=== PATIENT | female | born 1940 | race Caucasian/White ===

== ENCOUNTER 2017-08-23 10:42 | Emergency (ER) | payer MEDICARE, OTHER ==
[2017-08-23 10:50] VITALS: BP 145/62
--- NOTE | 2017-08-23 11:32 | UC ---
Abdominal Pain Female HPI - HPI Summary HPI Summary: Low abd discomfort, nausea, and inguinal pain with radiation to the legs starting 2 days ago. Denies vomiting or fever. In June 2017 pt was hospitalized with pancreatitis, no precipitating factors found. After hospitalization pt went to [facility] and had MRIs of abd and pelvis due to hx of vulvar CA in 2009, no pathology found. Had endoscopy with abd US 08/14, showed non-bleeding ulcer and normal pancreas. Was maintaining a very low-fat diet but increased fat after normal US. Is planning to leave town tomorrow and leave the country in 2 days for a 6-week trip to [facility], not sure if she should still go. - History of Current Complaint Chief Complaint: UCGeneralIllness Stated Complaint: ABD PAIN NAUSEA CHILLS Time Seen by Provider: 08/23/17 10:57 Hx Obtained From: Patient ?: No Onset/Duration: Gradual Onset, Lasting Days Timing: Constant Severity Initially: Mild Severity Currently: Moderate Location: Suprapubic Radiates: Yes Radiates to: Back, Inguinal, Other - upper legs Character: Aching, Dull Aggravating Factor(s): Movement Alleviating Factor(s): Nothing Associated Signs and Symptoms: Positive: Back Pain, Constipation - earlier in the week, resolved Fri/Sat, Decreased Appetite, Nausea. Negative: Vaginal Bleeding, Vomiting Allergies/Adverse Reactions: Allergies Allergy/AdvReac Type Severity Reaction Status Date / Time Amlodipine [From [facility]] Allergy Swelling Verified 08/23/17 10:45 Nitroglycerin Allergy Fatigue Verified 08/23/17 10:45 Clindamycin AdvReac Severe C-DIFF Verified 08/23/17 10:45 PMH/Surg Hx/FS Hx/Imm Hx Endocrine History: Thyroid Disease Cardiovascular History: Hypertension Other Cancer History: vulvar CA, had surgery and removal of lymph nodes Other History Of: Negative For: Anticoagulant Therapy - Surgical History Surgical History: None Surgery Procedure, Year, and Place: jose-vulvectomy 2009, tonsillectomy, appendectomy - Family History Known Family History: Positive: None - reviewed & noncontributory, Cardiac Disease - Social History Lives: With Family Alcohol Use: Occasionally Substance Use Type: None Smoking Status (MU): Former Smoker - Immunization History Most Recent Influenza Vaccination: 2014 Most Recent Tetanus Shot: 2009 Most Recent Pneumonia Vaccination: 2014 Review of Systems Constitutional: Negative Skin: Negative Eyes: Negative ENT: Negative Respiratory: Negative Cardiovascular: Negative Gastrointestinal: Abdominal Pain, Nausea Genitourinary: Negative Motor: Negative Neurovascular: Negative Musculoskeletal: Negative Neurological: Negative Psychological: Negative Is Patient Immunocompromised?: No All Other Systems Reviewed And Are Negative: Yes Physical Exam Triage Information Reviewed: Yes Appearance: No Pain Distress, Other: - pale Vital Signs: Initial Vital Signs Temp 98 F 08/23/17 10:46 Pulse 94 08/23/17 10:46 Resp 16 08/23/17 10:46 BP 145/62 08/23/17 10:46 Pulse Ox 100 08/23/17 10:46 Vital Signs Reviewed: Yes Eye Exam: Normal Eyes: Positive: Conjunctiva Clear ENT Exam: Normal ENT: Positive: Normal ENT inspection, Hearing grossly normal, Pharynx normal, TMs normal. Negative: TM bulging, TM dull, TM red Dental Exam: Normal Dental: Negative: Percussion Tenderness @, Gross Decay/Caries @ Neck exam: Normal Neck: Positive: Supple, Nontender, No Lymphadenopathy Respiratory Exam: Normal Respiratory: Positive: Chest non-tender, Lungs clear, Normal breath sounds, No respiratory distress, No accessory muscle use Cardiovascular: Positive: RRR, Murmur:Sys:Grade _?_/ - II, blowing Abdominal Exam: Other - Firm post-surgical scars where inguinal lymph nodes were removed bilat Abdomen Description: Positive: Nontender, Other: - midl discomfort with low palpation, nothing focal. Negative: McBurney's Point Tenderness, Peritoneal Signs Musculoskeletal Exam: Normal Musculoskeletal: Positive: ROM Intact Neurological Exam: Normal Neurological: Positive: Alert Psychological Exam: Normal Skin Exam: Normal Abd Pain Female Course/Dx - Differential Dx/Diagnosis Provider Diagnoses: abdominal pain Discharge - Discharge Plan Condition: Stable Disposition: AGAINST MEDICAL ADVICE Patient Education Materials: Acute Abdominal Pain (ED) Forms: *Gen. Provider Communication Referrals: Chani De La Garza MD [Primary Care Provider] - Additional Instructions: It is unclear what is causing your discomfort, but I am concerned about what could be happening. I strongly recommend you go to the emergency department for further care; I am unable to advise you about whether you should leave the country or not.
== END 2017-08-23 11:38 | disposition home or self-care (01) ==
LOC: UCEAST 10:42
DX: R10.30 Lower abdominal pain, unspecified (principal); R11.0 Nausea; M54.9 Dorsalgia, unspecified; K59.00 Constipation, unspecified; E07.9 Disorder of thyroid, unspecified; I10 Essential (primary) hypertension; Z85.44 Personal history of malignant neoplasm of other female genital organs; Z88.1 Allergy status to other antibiotic agents; Z87.891 Personal history of nicotine dependence
CPT/HCPCS: 99211; G0463

== ENCOUNTER 2018-04-23 01:18 | Observation (INO) | payer MEDICARE, OTHER ==
--- OUTSIDE RECORDS SUMMARY | 2018-04-23 01:27 | XMS REPORT ---
:1940 External Reference #:[id number] Author Organization [facility] Address [address] [place] [address] Phone [phone] Care Team Providers Name Role Phone Chani De La Garza M.D. Primary Care Physician Unavailable Payers Type Date Identification Numbers Payment Provider Subscriber Medicare Primary Policy Number: [id number] Medicare - NGS Paty Madrigal PayID: [id number] [address] [place] [address] Commercial Policy Number: [id number] [employer] Paty Madrigal PayID: [id number] [address] [place] [address] Problems Date Description Provider Status Onset: Arthritis Active Onset: Essential hypertension Active Onset: Herpes simplex type 2 infection Active Onset: Migraine Active Onset: Asthma Active Onset: Hypothyroidism Active Onset: 05/14/2015 Primary open angle glaucoma Vladimir Espino M.D. Active Onset: 05/14/2015 Nuclear senile cataract Vladimir Espino M.D. Active Onset: 05/14/2015 Severe / Advanced / End Stage Vladimir Espino M.D. Active Glaucoma Onset: 08/14/2015 Combined form of senile cataract Vladimir Espino M.D. Active Onset: 02/15/2016 Chalazion Nickolas Peterson OAnjelica Onset: 02/15/2016 Angular blepharoconjunctivitis Nickolas Peterson O.D. Onset: 12/03/2016 Epidermoid cyst Nickolas Peterson OAnjelica Onset: 12/17/2016 Bilateral primary open angle glaucoma Braden Sarah M.D. Active Onset: 11/20/2017 Squamous blepharitis Vladimir Espino M.D. Active Onset: 03/26/2018 Contact dermatitis Nickolas Peterson O.D. 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 ETOH Use Occasionally consumes alcohol Smoking Patient has never smoked Recreational Drug Use Denies Drug Use Daily Caffeine Consumes on average 1 cup of regular coffee per day Allergies, Adverse Reactions, Alerts Date Description Reaction Status Severity Comments 05/10/2015 Ragweed active 05/10/2015 Dust Mites active 05/10/2015 Mold active 04/09/2018 Benzalkonium Chloride active Medications Medication Date Status Form Strength Qnty SIG Indications Ordering Provider Travatan Z 04/07/ Active Solution 0.004% 2.500m 1 drop Jillian Philippe 2018 l both Jesus, eyes O.DAlexa every night Cold Compresses 04/07/ Active Jillian Lee O.D. Baby Shampoo 04/06/ Active Shampoo on lids Jillian Lee O.D. [place]-3 08/06/ Active Capsules 1000mg 1 by Vladimir Philippe 2014 mouth [place], every M.D. day Alphagan P 05/07/ Active Solution 0.1% 20unit instill Vladimir Malcolm s 1 drop [place], to both M.D. eyes twice a day Alprazolam / Active Tablets 0.25mg Unknown 0000 Atenolol / Active Tablets 25mg Unknown 0000 Cyanocobalamin / Active Solution 1000mcg/ML Unknown 0000 Ferrous Sulfate / Active Tablets ER 140(45Fe) Unknown ER 0000 mg Glucosamine & / Active Capsules 500-400-60 Unknown Fish Oil 0000 -40mg Levothyroxine / Active Tablets 88mcg Unknown Sodium 0000 Potassium / Active Solution 10Meq/100M Unknown Chloride 0000 L Rizatriptan / Active Tablets 10mg Unknown Benzoate 0000 Valacyclovir HCL / Active Tablets 1gm Unknown 0000 Zolpidem / Active Tablets 10mg Unknown Tartrate 0000 Lisinopril / Active Tablets 5mg Unknown 0000 Tobradex 03/26/ Hx Ointment 0.3-0.1% 3.500g apply to L23.9 Jillian Philippe 2018 - m all lids [facility], 04/06/ 2xday O.D. 2018 right eye and at bedtime left eye for 2 weeks Tobradex 12/03/ Hx Ointment 0.3-0.1% 3.500g apply to L72.3 Jillian Philippe 2017 - m RLL at [facility], 03/15/ bedtime O.D. 2017 for 2 weeks Erythromycin 02/14/ Hx Ointment 5mg/GM 1Tube apply H00.12 Jillian Philippe 2016 - thin [facility], 08/24/ strip to O.D. 2016 all four eyelid margins x every night for 3 weeks Tea Tree Oil 02/14/ Hx Oil scrubs Vladimir Carter 2015 - lids [place], 04/06/ with it M.D. 2018 than rinses Latanoprost 01/17/ Hx Solution 0.005% 7.500m one drop Vladimir Philippe 2015 - l in both [place], 04/07/ eyes M.D. 2018 every night before bedtime. Xalatan 05/09/ Hx Solution 0.005% 2.500m 1 drop Vladimir Philippe 2014 - l both [place], 01/17/ eyes M.D. 2016 every night Azopt 05/09/ Hx Suspension 1% 15unit 1 drop Vladimir Philippe 2014 - s both [place], 04/05/ eyes M.D. 2018 twice a day Medications Administered in Office Medication Date Status Form Strength Qnty SIG Indications Ordering Provider Crizal Administered Injection Rachna 3 Katherine Mcdowell Results Description No Information Procedures Date CPT Code Description Status 03/26/2018 76929 Est Patient Intermediate Exam Completed 11/20/2017 76230 Scanning Computerized Ophthalmic Diagnostic Imag Completed Posterior Seg On 11/20/2017 58285 Visual Field Exam Extended Completed 11/20/2017 43220 Est Patient Comprehensive Exam Completed 03/16/2017 34707 Visual Field Exam Extended Completed 03/16/2017 89318 Est Patient Intermediate Exam Completed 12/03/2016 66791 Est Patient Intermediate Exam Completed 08/25/2016 54801 Scanning Computerized Ophthalmic Diagnostic Imag Completed Posterior Seg On 08/25/2016 11745 Est Patient Comprehensive Exam Completed 03/04/2016 80879 Est Patient Intermediate Exam Completed 03/04/2016 50147 Visual Field Exam Extended Completed 02/15/2016 50710 Est Patient Comprehensive Exam Completed 08/14/2015 25326 Est Patient Intermediate Exam Completed 08/02/2015 45012 Determination Of Refractive State Completed 05/14/2015 11657 Scanning Computerized Ophthalmic Diagnostic Imag Completed Posterior Seg On 05/14/2015 16934 Est Patient Comprehensive Exam Completed 05/10/2015 64947 Visual Field Exam Extended Completed 01/03/2014 59488 Est Patient Comprehensive Exam Completed 01/03/2014 00286 Determination Of Refractive State Completed 01/03/2014 21570 Fundus Photography With Interpretation And Report Completed 07/01/2013 80390 Scanning Computerized Ophthalmic Diagnostic Imag Completed Posterior Seg On 07/01/2013 38326 Visual Field Exam Extended Completed 07/01/2013 45292 Est Patient Intermediate Exam Completed 12/23/2012 46359 Est Patient Intermediate Exam Completed 08/23/2012 91704 Scanning Computerized Ophthalmic Diagnostic Imag Completed Posterior Seg On 08/23/2012 43562 Est Patient Intermediate Exam Completed 08/11/2012 26372 Visual Field Exam Extended Completed 04/01/2012 30721 Est Patient Intermediate Exam Completed 10/31/2011 03438 Visual Field Exam Extended Completed 10/31/2011 99452 Est Patient Intermediate Exam Completed 07/18/2011 77671 Trabeculoplasty By Laser Surgery Completed 06/26/2011 28262 Visual Field Exam Extended Completed 06/26/2011 95726 Est Patient Intermediate Exam Completed 04/25/2011 01093 Scanning Computerized Ophthalmic Diagnostic Imag Completed Posterior Seg On 04/25/2011 74690 Est Patient Intermediate Exam Completed 12/26/2010 52969 Est Patient Intermediate Exam Completed 12/13/2010 21743 Visual Field Exam Extended Completed 05/01/2010 46253 Est Patient Intermediate Exam Completed 04/09/2010 20816 Scanning Laser W/Interp And Report Completed 04/09/2010 54290 Est Patient Comprehensive Exam Completed 12/14/2009 59751 Visual Field Exam Extended Completed 11/02/2009 08632 Est Patient Intermediate Exam Completed 08/14/2009 68052 Visual Field Exam Extended Completed 08/14/2009 66356 Est Patient Intermediate Exam Completed 04/05/2009 86609 Est Patient Intermediate Exam Completed 04/05/2009 74930 Scanning Laser W/Interp And Report Completed 10/17/2008 12704 Fundus Photography With Interpretation And Report Completed 10/17/2008 16484 Visual Field Exam Extended Completed 10/17/2008 81616 Est Patient Intermediate Exam Completed 05/23/2008 12684 Trabeculoplasty By Laser Surgery Completed 04/20/2008 10813 Fistulization Sclera For Glaucoma, Trabeculectomy AB Completed Externo 04/03/2008 29008 Visual Field Exam Extended Completed 03/10/2008 02918 Visual Field Exam Extended Completed 11/04/2007 13625 Est Patient Intermediate Exam Completed 11/04/2007 57600 Determination Of Refractive State Completed 08/24/2007 85997 Est Patient Intermediate Exam Completed 08/02/2007 50504 Est Patient Intermediate Exam Completed 05/14/2007 73031 Scanning Laser W/Interp And Report Completed 05/14/2007 01132 Visual Field Exam Extended Completed 05/14/2007 94095 Est Patient Intermediate Exam Completed 01/13/2007 32181 Trabeculoplasty By Laser Surgery Completed 09/21/2006 80048 Visual Field Exam Extended Completed 04/08/2006 58140 Fundus Photography With Interpretation And Report Completed 04/14/2005 52094 Visual Field Exam Extended Completed 03/14/2005 71054 Rescheduled Appointment Completed 12/26/2004 28846 Gonioscopy Completed 11/12/2004 65572 Fundus Photography With Interpretation And Report Completed 11/12/2004 01413 Est Patient Intermediate Exam Completed 11/12/2004 24411 Pachymetry Completed 11/06/2004 47952 Scanning Laser W/Interp And Report Completed 11/06/2004 09010 Visual Field Exam Extended Completed 10/25/2004 03709 Est Patient Intermediate Exam Completed 01/16/2003 113 Crizal Completed Encounters Type Date Location Provider CPT E/M Dx Office Visit 04/02/2018 2:20p Vladimir Espino MD, Jillian Lee, 57853 L23.9 pc O.D. H40.1133 Office Visit 12/17/2016 10:45a Vladimir Espino MD, Braden Sarah M.D. 57999 L72.3 pc H40.1133 Office Visit 11/29/2013 12:00p Vladimir Espino MD, Su Botello O.D. 85115 373.00 pc 373.12 Office Visit 09/16/2013 2:20p Vladimir Espino MD, Jillian Lee, 97883 373.2 pc O.D. Office Visit 11/11/2012 11:00a Vladimir Espino MD, Jillian Lee, 73593 692.9 pc O.D. Office Visit 10/27/2012 9:10a Vladimir Espino MD, Jillian Lee, 68492 373.2 pc O.D. Office Visit 02/18/2012 11:00a Vladimir Espino MD, Ivan Burton M.D. 83594 V58.32 pc Office Visit 09/12/2011 1:30p Vladimir Espino MD, Ivan Burton M.D. 44655 372.40 pc Office Visit 08/29/2011 11:00a Vladimir Espino MD, Vladimir Espino M.D. 24498 365.11 pc 365.73 Office Visit 05/15/2011 10:45a Vladimir Espino MD, Oswaldo Andrea M.D. 42962 365.11 pc Office Visit 05/02/2010 11:00a Vladimir Espino MD, Vladimir Espino M.D. 35701 365.11 pc Office Visit 12/14/2009 11:45a Vladimir Espino MD, Vladimir Espino M.D. 03115 365.11 pc Office Visit 08/15/2008 3:45p Vladimir Espino MD, Vladimir Espino M.D. 53703 373.00 pc Office Visit 06/07/2008 6:00p Vladimir Espino MD, Casandra Rosenberg O.D. 02493 372.05 pc Office Visit 04/05/2008 8:15a Vladimir Espino MD, Vladimir Espino M.D. 42120 365.11 pc Office Visit 04/04/2008 11:15a Vladimir Espino MD, Vladimir Espino M.D. 04210 365.11 pc Office Visit 03/10/2008 9:45a Vladimir Espino MD, Vladimir Espino M.D. 04545 365.11 pc Office Visit 02/10/2007 8:15a Vladimir Espino MD, Vladimir Espino M.D. 39186 365.11 pc Office Visit 12/23/2006 8:45a Vladimir Espino MD, Oswaldo Andrea M.D. 67642 365.11 pc Office Visit 04/16/2006 10:15a Vladimir Espino MD, Oswaldo Andrea M.D. 70316 365.11 pc Office Visit 04/08/2006 10:15a Vladimir Espino MD, Oswaldo Andrea M.D. 47397 365.11 pc Office Visit 12/17/2005 3:45p Vladimir Espino MD, Oswaldo Andrea M.D. 92618 365.11 pc Office Visit 09/17/2005 3:15p Vladimir Espino MD, Oswaldo Andrea M.D. 70873 365.11 pc Office Visit 07/22/2005 3:45p Vladimir Espino MD, Oswaldo Andrea M.D. 94044 365.11 pc Office Visit 07/08/2005 3:45p Vladimir Espino MD, Oswaldo Andrea M.D. 91159 365.11 pc Office Visit 05/27/2005 3:15p Vladimir Espino MD, Oswaldo Andrea M.D. 02822 365.11 pc Office Visit 05/14/2005 8:15a Vladimir Espino MD, Oswaldo Andrea M.D. 07549 365.11 pc Office Visit 03/18/2005 11:15a Vladimir Espino MD, Oswaldo Andrea M.D. 88974 365.11 pc Office Visit 12/26/2004 9:45a Vladimir Espino MD, Vladimir Espino M.D. 85465 365.01 Plan of Care Future Appointment(s):05/04/2018 1:00 pm - Vladimir Espino M.D. at Vladimir Espino MD, 04/09/2018 - Jillian Lee O.D.L23.9 Allergic contact dermatitis, unspecified causeFollow up:3 wks with RA as [id number] Primary open-angle glaucoma, bilateral, severe stageComments:Smoking can increase the risk of developing or worsening any eye related disease, as well as affect your overall health. If you are a smoker, we strongly recommend that you quit.If you are not a smoker, we strongly recommend that you do not start. Your glaucoma is stable at this time.Your eye pressure is within an acceptable range , and your testing does not show any Glaucoma related changes at thistime. Please continue your treatment.
--- OUTSIDE RECORDS SUMMARY | 2018-04-23 01:28 | XMS REPORT ---
:1940 External Reference #:[id number] Author Organization [facility] Address [address] [place] [address] Phone [phone] Care Team Providers Name Role Phone Chani De La Garza M.D. Primary Care Physician Unavailable Payers Type Date Identification Numbers Payment Provider Subscriber Medicare Primary Policy Number: [id number] Medicare - NGS Paty Madrigal PayID: [id number] [address] [place] [address] Commercial Policy Number: [id number] [employer] Paty Madrigal PayID: [id number] [address] [place] [address] Problems Date Description Provider Status Onset: Arthritis [...] Nickolas Peterson OAnjelica Onset: 02/15/2016 Angular blepharoconjunctivitis Jillian Lee Active O.DAlexa Onset: 12/03/2016 Epidermoid cyst Jillian Lee Active O.Darryn Onset: 12/17/2016 Bilateral primary open angle glaucoma Braden Sarah M.D. Active Onset: 11/20/2017 Squamous blepharitis Vladimir Espino M.D. 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 right eye and at bedtime left eye for 2 weeks Tea Tree Oil 02/14/ Active Oil scrubs Vladimir Philippe Shamliang 2016 lids [place], with it M.D. than rinses Latanoprost 01/17/ Active Solution 0.005% 7.500m one drop Vladimir Flannery l in both [place], eyes M.D. every night before bedtime. [place]-3 08/06/ Active Capsules 1000mg 1 by Vladimir Philippe 2015 mouth [place], every M.D. day Azopt 05/09/ Active Suspension 1% 15unit 1 drop Vladimir Malcolm s both [place], eyes M.D. twice a day Alphagan P 05/07/ Active Solution 0.1% [...] / Active Tablets 5mg Unknown 0000 Tobradex 12/03/ Hx Ointment 0.3-0.1% 3.500g apply to L72.3 Jillian Philippe 2017 - m RLL at [facility], 03/15/ bedtime O.D. 2016 for 2 weeks Erythromycin 02/14/ Hx Ointment 5mg/GM 1Tube apply H00.12 Jillian Philippe 2016 - thin [facility], 08/24/ strip to O.D. 2016 all four eyelid margins x every night for 3 weeks Xalatan 05/09/ Hx Solution 0.005% 2.500m 1 drop Vladimir Philippe 2015 - l both [place], 01/17/ eyes M.D. 2016 every night Medications Administered in Office Medication Date Status Form Strength Qnty SIG Indications Ordering Provider Crizal Administered Injection Rachna 3 Brown,Abo Results Description No Information Procedures Date CPT Code Description Status 11/20/2017 89629 Scanning Computerized Ophthalmic Diagnostic Imag Completed Posterior Seg On 11/20/2017 05067 Visual Field Exam Extended Completed 11/20/2017 53200 Est Patient Comprehensive Exam Completed 03/16/2017 51847 Visual Field Exam Extended Completed 03/16/2017 52100 Est Patient Intermediate Exam Completed 12/03/2016 99617 Est Patient Intermediate Exam Completed 08/25/2016 11023 Scanning Computerized Ophthalmic Diagnostic Imag Completed Posterior Seg On 08/25/2016 69622 Est Patient Comprehensive Exam Completed 03/04/2016 68712 Est Patient Intermediate Exam Completed 03/04/2016 58374 Visual Field Exam Extended Completed 02/15/2016 04317 Est Patient Comprehensive Exam Completed 08/14/2015 36934 Est Patient Intermediate Exam Completed 08/02/2015 67283 Determination Of Refractive State Completed 05/14/2015 62205 Scanning Computerized Ophthalmic Diagnostic Imag Completed Posterior Seg On 05/14/2015 05107 Est Patient Comprehensive Exam Completed 05/10/2015 91367 Visual Field Exam Extended Completed 01/03/2014 62354 Est Patient Comprehensive Exam Completed 01/03/2014 12964 Determination Of Refractive State Completed 01/03/2014 96455 Fundus Photography With Interpretation And Report Completed 07/01/2013 14913 Scanning Computerized Ophthalmic Diagnostic Imag Completed Posterior Seg On 07/01/2013 70002 Visual Field Exam Extended Completed 07/01/2013 72327 Est Patient Intermediate Exam Completed 12/23/2012 59564 Est Patient Intermediate Exam Completed 08/23/2012 65416 Scanning Computerized Ophthalmic Diagnostic Imag Completed Posterior Seg On 08/23/2012 09292 Est Patient Intermediate Exam Completed 08/11/2012 18587 Visual Field Exam Extended Completed 04/01/2012 21189 Est Patient Intermediate Exam Completed 10/31/2011 31025 Visual Field Exam Extended Completed 10/31/2011 30209 Est Patient Intermediate Exam Completed 07/18/2011 32257 Trabeculoplasty By Laser Surgery Completed 06/26/2011 75582 Visual Field Exam Extended Completed 06/26/2011 90943 Est Patient Intermediate Exam Completed 04/25/2011 23057 Scanning Computerized Ophthalmic Diagnostic Imag Completed Posterior Seg On 04/25/2011 82157 Est Patient Intermediate Exam Completed 12/26/2010 27037 Est Patient Intermediate Exam Completed 12/13/2010 35002 Visual Field Exam Extended Completed 05/01/2010 19533 Est Patient Intermediate Exam Completed 04/09/2010 36092 Scanning Laser W/Interp And Report Completed 04/09/2010 82079 Est Patient Comprehensive Exam Completed 12/14/2009 66600 Visual Field Exam Extended Completed 11/02/2009 11480 Est Patient Intermediate Exam Completed 08/14/2009 79345 Visual Field Exam Extended Completed 08/14/2009 53245 Est Patient Intermediate Exam Completed 04/05/2009 67151 Scanning Laser W/Interp And Report Completed 04/05/2009 56142 Est Patient Intermediate Exam Completed 10/17/2008 21740 Est Patient Intermediate Exam Completed 10/17/2008 35694 Visual Field Exam Extended Completed 10/17/2008 49092 Fundus Photography With Interpretation And Report Completed 05/23/2008 98465 Trabeculoplasty By Laser Surgery Completed 04/20/2008 36705 Fistulization Sclera For Glaucoma, Trabeculectomy AB Completed Externo 04/03/2008 08611 Visual Field Exam Extended Completed 03/10/2008 70050 Visual Field Exam Extended Completed 11/04/2007 76840 Determination Of Refractive State Completed 11/04/2007 90880 Est Patient Intermediate Exam Completed 08/24/2007 61370 Est Patient Intermediate Exam Completed 08/02/2007 96411 Est Patient Intermediate Exam Completed 05/14/2007 97779 Scanning Laser W/Interp And Report Completed 05/14/2007 46596 Visual Field Exam Extended Completed 05/14/2007 75349 Est Patient Intermediate Exam Completed 01/13/2007 29127 Trabeculoplasty By Laser Surgery Completed 09/21/2006 69963 Visual Field Exam Extended Completed 04/08/2006 32855 Fundus Photography With Interpretation And Report Completed 04/14/2005 45848 Visual Field Exam Extended Completed 03/14/2005 70302 Rescheduled Appointment Completed 12/26/2004 16992 Gonioscopy Completed 11/12/2004 40903 Fundus Photography With Interpretation And Report Completed 11/12/2004 24663 Est Patient Intermediate Exam Completed 11/12/2004 30843 Pachymetry Completed 11/06/2004 91034 Scanning Laser W/Interp And Report Completed 11/06/2004 40563 Visual Field Exam Extended Completed 10/25/2004 53961 Est Patient Intermediate Exam Completed 01/16/2003 113 Crizal Completed Encounters Type Date Location Provider CPT E/M Dx Office Visit 12/17/2016 10:45a Vladimir Espino MD, Braden Sarah, 46170 L72.3 pc M.D. H40.1133 Office Visit 11/29/2013 12:00p Vladimir Espino MD, Su Botello O.D. 95801 373.00 pc 373.12 Office Visit 09/16/2013 2:20p Vladimir Espino MD, Jillian Lee, 62627 373.2 pc O.D. Office Visit 11/11/2012 11:00a Vladimir Espino MD, Jillian Lee, 96479 692.9 pc O.D. Office Visit 10/27/2012 9:10a Vladimir Espino MD, Jillian Lee, 19852 373.2 pc O.D. Office Visit 02/18/2012 11:00a Vladimir Espino MD, Ivan Burton M.D. 18089 V58.32 pc Office Visit 09/12/2011 1:30p Vladimir Espino MD, Ivan Burton M.D. 12092 372.40 pc Office Visit 08/29/2011 11:00a Vladimir Espino MD, Vladimir Espino M.D. 63684 365.11 pc 365.73 Office Visit 05/15/2011 10:45a Vladimir Espino MD, Oswaldo Andrea M.D. 87514 365.11 pc Office Visit 05/02/2010 11:00a Vladimir Espino MD, Vladimir Espino M.D. 81386 365.11 pc Office Visit 12/14/2009 11:45a Vladimir Espino MD, Vladimir Espino M.D. 58162 365.11 pc Office Visit 08/15/2008 3:45p Vladimir Espino MD, Vladimir Espino M.D. 45382 373.00 pc Office Visit 06/07/2008 6:00p Vladimir Espino MD, Casandra Rosenberg O.D. 61963 372.05 pc Office Visit 04/05/2008 8:15a Vladimir Espino MD, Vladimir Espino M.D. 51183 365.11 pc Office Visit 04/04/2008 11:15a Vladimir Espino MD, Robert J. Arleo, M.D. 17790 365.11 pc Office Visit 03/10/2008 9:45a Vladimir Espino MD, Robert J. Arleo, M.D. 69108 365.11 pc Office Visit 02/10/2007 8:15a Vladimir Espino MD, Robert J. Arleo, M.D. 12420 365.11 pc Office Visit 12/23/2006 8:45a Vladimir Espino MD, Oswaldo Andrea M.D. 55632 365.11 pc Office Visit 04/16/2006 10:15a Vladimir Espino MD, Oswaldo Andrea M.D. 54504 365.11 pc Office Visit 04/08/2006 10:15a Vladimir Espino MD, Oswaldo Andrea M.D. 69706 365.11 pc Office Visit 12/17/2005 3:45p Vladimir Espino MD, Oswaldo Andrea M.D. 46386 365.11 pc Office Visit 09/17/2005 3:15p Vladimir Espino MD, Oswaldo Andrea M.D. 92673 365.11 pc Office Visit 07/22/2005 3:45p Vladimir Espino MD, Oswaldo Andrea M.D. 58425 365.11 pc Office Visit 07/08/2005 3:45p Vladimir Espino MD, Oswaldo Andrea M.D. 99395 365.11 pc Office Visit 05/27/2005 3:15p Vladimir Espino MD, Oswaldo Andrea M.D. 17248 365.11 pc Office Visit 05/14/2005 8:15a Vladimir Espino MD, Oswaldo Andrea M.D. 72499 365.11 pc Office Visit 03/18/2005 11:15a Vladimir Espino MD, Oswaldo Andrea M.D. 64381 365.11 pc Office Visit 12/26/2004 9:45a Vladimir Espino MD, Vladimir Espino M.D. 46572 365.01 Plan of Care Future Appointment(s):05/31/2018 12:30 pm - Vladimir Espino M.D. at [facility]ino [facility], 03/26/2018 - Jillian Lee O.D.H10.523 Angular blepharoconjunctivitis, [id number] Allergic contact dermatitis, unspecified causeNew Medication:Tobradex 0.3-0.1 %Comments:stop all product use use ointment 2xday all lids right eye and at bedtime only left lidsFollow up:1 Week Follow Up
--- OUTSIDE RECORDS SUMMARY | 2018-04-23 01:28 | XMS REPORT ---
:1940 External Reference #:[id number] Author Organization [facility] Address [address] [place] [address] Phone [phone] Care Team Providers Name Role Phone Chani De La Garza M.D. 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 every night before bedtime. [place]-3 08/06/ Active Capsules 1000mg 1 by Vladimir [...] Jillian Philippe 2017 - m RLL at [facility], 03/15/ bedtime O.D. 2016 for 2 weeks Erythromycin 02/14/ Hx Ointment 5mg/GM 1Tube apply H00.12 Jillian Philippe 2016 - thin [facility], 08/24/ strip to O.D. 2016 all four eyelid margins x every night for 3 weeks Xalatan 05/09/ Hx Solution 0.005% 2.500m 1 drop Vladimir Philippe 2015 - l both [place], 01/17/ eyes M.D. 2016 every night Medications Administered in Office Medication Date Status Form Strength Qnty SIG Indications Ordering Provider Crizal Administered Injection Rachna 3 Brown,Katherine Results Description No Information Procedures Date CPT Code Description Status 03/26/2018 15761 Est Patient Intermediate Exam Completed 11/20/2017 74759 Scanning Computerized Ophthalmic Diagnostic Imag Completed Posterior Seg On 11/20/2017 19469 Visual Field Exam Extended Completed 11/20/2017 90997 Est Patient Comprehensive Exam Completed 03/16/2017 83339 Visual Field Exam Extended Completed 03/16/2017 21771 Est Patient Intermediate Exam Completed 12/03/2016 41242 Est Patient Intermediate Exam Completed 08/25/2016 92128 Scanning Computerized Ophthalmic Diagnostic Imag Completed Posterior Seg On 08/25/2016 25025 Est Patient Comprehensive Exam Completed 03/04/2016 47617 Est Patient Intermediate Exam Completed 03/04/2016 80205 Visual Field Exam Extended Completed 02/15/2016 67598 Est Patient Comprehensive Exam Completed 08/14/2015 65111 Est Patient Intermediate Exam Completed 08/02/2015 19538 Determination Of Refractive State Completed 05/14/2015 89207 Scanning Computerized Ophthalmic Diagnostic Imag Completed Posterior Seg On 05/14/2015 70870 Est Patient Comprehensive Exam Completed 05/10/2015 72813 Visual Field Exam Extended Completed 01/03/2014 71141 Est Patient Comprehensive Exam Completed 01/03/2014 13922 Determination Of Refractive State Completed 01/03/2014 47602 Fundus Photography With Interpretation And Report Completed 07/01/2013 62511 Scanning Computerized Ophthalmic Diagnostic Imag Completed Posterior Seg On 07/01/2013 54342 Visual Field Exam Extended Completed 07/01/2013 86255 Est Patient Intermediate Exam Completed 12/23/2012 52032 Est Patient Intermediate Exam Completed 08/23/2012 63404 Scanning Computerized Ophthalmic Diagnostic Imag Completed Posterior Seg On 08/23/2012 34771 Est Patient Intermediate Exam Completed 08/11/2012 62862 Visual Field Exam Extended Completed 04/01/2012 51938 Est Patient Intermediate Exam Completed 10/31/2011 74883 Visual Field Exam Extended Completed 10/31/2011 37996 Est Patient Intermediate Exam Completed 07/18/2011 19248 Trabeculoplasty By Laser Surgery Completed 06/26/2011 62185 Visual Field Exam Extended Completed 06/26/2011 04980 Est Patient Intermediate Exam Completed 04/25/2011 44936 Scanning Computerized Ophthalmic Diagnostic Imag Completed Posterior Seg On 04/25/2011 49387 Est Patient Intermediate Exam Completed 12/26/2010 52422 Est Patient Intermediate Exam Completed 12/13/2010 71253 Visual Field Exam Extended Completed 05/01/2010 90397 Est Patient Intermediate Exam Completed 04/09/2010 50944 Scanning Laser W/Interp And Report Completed 04/09/2010 90908 Est Patient Comprehensive Exam Completed 12/14/2009 47602 Visual Field Exam Extended Completed 11/02/2009 06195 Est Patient Intermediate Exam Completed 08/14/2009 38312 Visual Field Exam Extended Completed 08/14/2009 20700 Est Patient Intermediate Exam Completed 04/05/2009 87128 Est Patient Intermediate Exam Completed 04/05/2009 51942 Scanning Laser W/Interp And Report Completed 10/17/2008 98424 Fundus Photography With Interpretation And Report Completed 10/17/2008 25887 Visual Field Exam Extended Completed 10/17/2008 72180 Est Patient Intermediate Exam Completed 05/23/2008 05084 Trabeculoplasty By Laser Surgery Completed 04/20/2008 48448 Fistulization Sclera For Glaucoma, Trabeculectomy AB Completed Externo 04/03/2008 50656 Visual Field Exam Extended Completed 03/10/2008 72052 Visual Field Exam Extended Completed 11/04/2007 97469 Est Patient Intermediate Exam Completed 11/04/2007 31680 Determination Of Refractive State Completed 08/24/2007 42620 Est Patient Intermediate Exam Completed 08/02/2007 34476 Est Patient Intermediate Exam Completed 05/14/2007 58456 Scanning Laser W/Interp And Report Completed 05/14/2007 29320 Visual Field Exam Extended Completed 05/14/2007 48166 Est Patient Intermediate Exam Completed 01/13/2007 91302 Trabeculoplasty By Laser Surgery Completed 09/21/2006 34476 Visual Field Exam Extended Completed 04/08/2006 16995 Fundus Photography With Interpretation And Report Completed 04/14/2005 53131 Visual Field Exam Extended Completed 03/14/2005 71914 Rescheduled Appointment Completed 12/26/2004 81729 Gonioscopy Completed 11/12/2004 60715 Fundus Photography With Interpretation And Report Completed 11/12/2004 69141 Est Patient Intermediate Exam Completed 11/12/2004 24362 Pachymetry Completed 11/06/2004 71585 Scanning Laser W/Interp And Report Completed 11/06/2004 17733 Visual Field Exam Extended Completed 10/25/2004 86986 Est Patient Intermediate Exam Completed 01/16/2003 113 Crizal Completed Encounters Type Date Location Provider CPT E/M Dx Office Visit 12/17/2016 10:45a Vladimir Espino MD, Braden Sarah, 54768 L72.3 pc M.DAlexa H40.1133 Office Visit 11/29/2013 12:00p Vladimir Espino MD, Su Botello O.D. 87488 373.00 pc 373.12 Office Visit 09/16/2013 2:20p Vladimir Espino MD, Jillian Lee, 84400 373.2 pc O.D. Office Visit 11/11/2012 11:00a Vladimir Espino MD, Jillian Lee, 70490 692.9 pc O.D. Office Visit 10/27/2012 9:10a Vladimir Espino MD, Jillian Denae Lee, 15820 373.2 pc O.D. Office Visit 02/18/2012 11:00a Vladimir Espino MD, Ivan Burton M.D. 80568 V58.32 pc Office Visit 09/12/2011 1:30p Vladimir Espino MD, Ivan Burton M.D. 09015 372.40 pc Office Visit 08/29/2011 11:00a Vladimir Espino MD, Vladimir Espino M.D. 28562 365.11 pc 365.73 Office Visit 05/15/2011 10:45a Vladimir Espino MD, Oswaldo Andrea M.D. 45299 365.11 pc Office Visit 05/02/2010 11:00a Vladimir Espino MD, Vladimir Espino M.D. 24550 365.11 pc Office Visit 12/14/2009 11:45a Vladimir Espino MD, Vladimir Espino M.D. 63233 365.11 pc Office Visit 08/15/2008 3:45p Vladimir Espino MD, Vladimir Espino M.D. 37901 373.00 pc Office Visit 06/07/2008 6:00p Vladimir Espino MD, Casandra Rosenberg O.D. 48102 372.05 pc Office Visit 04/05/2008 8:15a Vladimir Espino MD, Vladimir Espino M.D. 42833 365.11 pc Office Visit 04/04/2008 11:15a Vladimir Espino MD, Robert J. Arleo, M.D. 98988 365.11 pc Office Visit 03/10/2008 9:45a Vladimir Espino MD, Vladimir Espino M.D. 19483 365.11 pc Office Visit 02/10/2007 8:15a Vladimir Espino MD, Robert J. Arleo, M.D. 14858 365.11 pc Office Visit 12/23/2006 8:45a Vladimir Espino MD, Oswaldo Andrea M.D. 34932 365.11 pc Office Visit 04/16/2006 10:15a Vladimir Espino MD, Oswaldo Andrea M.D. 85782 365.11 pc Office Visit 04/08/2006 10:15a Vladimir Espino MD, Oswaldo Andrea M.D. 75945 365.11 pc Office Visit 12/17/2005 3:45p Vladimir Espino MD, Oswaldo Andrea M.D. 11056 365.11 pc Office Visit 09/17/2005 3:15p Vladimir Espino MD, Oswaldo Andrea M.D. 57892 365.11 pc Office Visit 07/22/2005 3:45p Vladimir Espino MD, Oswaldo Andrea M.D. 76665 365.11 pc Office Visit 07/08/2005 3:45p Vladimir Espino MD, Oswlado Andrea M.D. 43116 365.11 pc Office Visit 05/27/2005 3:15p Vladimir Espino MD, Oswaldo Andrea M.D. 70958 365.11 pc Office Visit 05/14/2005 8:15a Vladimir Espino MD, Oswaldo Andrea M.D. 20228 365.11 pc Office Visit 03/18/2005 11:15a Vladimir Espino MD, Oswaldo Andrea M.D. 98834 365.11 pc Office Visit 12/26/2004 9:45a Vladimir Espino MD, Vladimir Espino M.D. 99707 365.01 Plan of Care Future Appointment(s):05/31/2018 12:30 pm - Vladimir Espino M.D. at [facility], 04/02/2018 - Jillian Lee O.D.L23.9 Allergic contact dermatitis, unspecified causeFollow up:1 weekH40.1133 Primary open-angle glaucoma, bilateral, severe stageComments:STOP Azopt and LatanoprostStop Tobradex dropsSTART Travatan z both eyes at bedtimeContinue Alphagan P 2 x day both eyesUse Jorge's Baby shampoo for washingUse a cold compress for comfort
[2018-04-23] MEDS ORDERED: NS 0.9% 1000 ML* 1,000 ML IV ONE (01:43)
--- NOTE | 2018-04-23 01:52 | ED ---
Complex/Multi-Sys Presentation - HPI Summary HPI Summary: This is scribe Marty Ortega documenting for attending Thomas Menon MD. This patient is a 78 year old F presenting to [facility] with a chief complaint of weakness since 14:30 on 04/22/2018. Patient reports vomiting, diarrhea, abdominal pain (since resolved), and clamminess. Patient denies CP. On 2017, she had pasta with tomato sauce for lunch and then chocolate. Immediately following, she experienced the abdominal pain. Took a calcium antacid which didn t alleviate the symptoms. She vomited, then vomited again 2 hours later, still felling the abdominal pain. Patient then took a magnesium/aluminum antacid which helped slightly to alleviate the abdominal pain. She has a PMHx of pancreatitis and PAT (with an irregular pulse). Her pancreatitis was resolved in June 2017. Six weeks after being released from the hospital, her GI doctor checked her pancreas and remarked that it looked unusually healthy. Family member remarks that this case is similar to the case before being dx with pancreatitis. I, Dr. Menon, personally performed the services described in this documentation as scribed in my presence and it is both accurate and complete. - History Of Current Complaint Chief Complaint: EDWeakness Time Seen by Provider: 04/23/18 01:32 Hx Obtained From: Patient Onset/Duration: Sudden Onset - 14:30 on 04/22/2018, Lasting Hours - 14:30 on 05/2018 Timing: Constant Alleviating Factor(s): magnesium/aluminum antacid helped alleviate the abdominal pain Associated Signs And Symptoms: Positive: Weakness, Vomiting, Diarrhea, Abdominal Pain - (since resolved), Other - Clamminess. Negative: Chest Pain - Allergies/Home Medications Allergies/Adverse Reactions: Allergies Allergy/AdvReac Type Severity Reaction Status Date / Time clindamycin Allergy Severe See Comment Verified 04/23/18 04:02 amlodipine [From [facility]] Allergy Swelling Verified 04/23/18 04:02 nitroglycerin Allergy Fatigue Verified 04/23/18 04:02 PMH/Surg Hx/FS Hx/Imm Hx Endocrine/Hematology History: Reports: Hx Thyroid Disease, Hx Anemia - iron defficiancy s/p chemo and radiation Denies: Hx Anticoagulant Therapy, Hx Blood Disorders, Hx Blood Transfusions, Hx Bone Marrow Disease, Hx Diabetes, Hx Systemic Lupus Erythematosus, Hx Sickle Cell Disease, Hx Unexplained Bleeding, Other Endocrine/Hematological Disorders Cardiovascular History: Reports: Hx Hypercholesterolemia, Hx Hypotension - adverse effect of nitro, Hx Hypertension, Hx Syncope Denies: Hx Aneurysm, Hx Angina, Hx Angioplasty, Hx Auto Implanted Cardiovert Defib, Hx Cardiac Arrest, Hx Cardiomegaly, Hx Congenital Heart Disease, Hx Congestive Heart Failure, Hx Coronary Artery Disease, Hx Deep Vein Thrombosis, Hx Embolism, Hx Myocardial Infarction, Hx Pacemaker/ICD, Hx Peripheral Vascular Disease, Hx Rheumatic Fever, Hx Valvular Heart Disease, Other Cardiovascular Problems/Disorders Respiratory History: Reports: Hx Seasonal Allergies - mold Denies: Hx Asthma, Hx Chronic Bronchitis, Hx Chronic Obstructive Pulmonary Disease (COPD), Hx Cystic Fibrosis, Hx Lung Cancer, Hx Pleural Effusion, Hx Pneumonia, Hx Pulmonary Edema, Hx Pulmonary Embolism, Hx Sleep Apnea GI History: Reports: Hx Diverticulosis Denies: Hx Cirrhosis, Hx Crohn's Disease, Hx Gall Bladder Disease, Hx Gastroesophageal Reflux Disease, Hx Gastrointestinal Bleed, Hx Hiatal Hernia, Hx Irritable Bowel, Hx Jaundice, Hx Obstructive Bowel, Hx Ileostomy, Hx Pyloric Stenosis, Hx Ulcer, Other GI Disorders History: Denies: Hx Acute Renal Failure, Hx Benign Prostatic Hyperplasia, Hx Chronic Renal Failure, Hx Dialysis, Hx Kidney Infection, Hx Kidney Stones, Hx Renal Disease Comment Only: Other Problems/Disorders - Hx UTI Musculoskeletal History: Reports: Hx Arthritis - osteo arthritis, Hx Back Problems - low back, Hx Orthopedic Injury - pelvis dislocation from previous fall, Hx Osteoporosis - osteopenia Denies: Hx Bursitis, Hx Congenital Bone Abnormalities, Hx Fibromyalgia, Hx Gout, Hx Scoliosis, Hx Tendonitis Sensory History: Reports: Hx Contacts or Glasses, Hx Glaucoma, Hx Vision Problem Denies: Hx Cataracts, Hx Eye Injury, Hx Eye Prosthesis, Hx Macular Degeneration, Hx Deafness, Hx Hearing Aid, Hx Hearing Problem, Other Sensory Impairments Opthamlomology History: Reports: Hx Contacts or Glasses, Hx Glaucoma, Hx Vision Problem Denies: Hx Cataracts, Hx Eye Injury, Hx Eye Prosthesis, Hx Macular Degeneration, Other Sensory Impairments Neurological History: Reports: Hx Migraine - Aura migraine Denies: Hx Dementia, Hx Developmental Delay, Hx Headaches, Hx Seizures, Hx Spinal Cord Injury, Hx Transient Ischemic Attacks (TIA), Other Neuro Impairments /Disorders Psychiatric History: Reports: Hx Anxiety Denies: Hx Attention Deficit Hyperactivity Disorder, Hx Eating Disorder, Hx Depression, Hx Panic Disorder, Hx Post Traumatic Stress Disorder, Hx Inpatient Treatment, Hx Community Mental Health Tx, Hx Schizophrenia, Hx Bipolar Disorder , Hx Suicide Attempt, Hx of Violent Episodes Against Others, Hx Substance Abuse , Other Psychiatric Issues/Disorders - Cancer History Cancer Type, 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 Hx Chemotherapy: Yes - 2009 Hx Radiation Therapy: Yes - Surgical History Surgery Procedure, Year, and Place: jose-vulvectomy 2009, tonsillectomy, appendectomy Hx Anesthesia Reactions: No Infectious Disease History: No Infectious Disease History: Denies: Hx Clostridium Difficile, Hx Hepatitis, Hx Human Immunodeficiency Virus (HIV), Hx Shingles, Hx Tuberculosis, Hx Known/Suspected VRE, Hx Known/ Suspected VRSA, History Other Infectious Disease, Traveled Outside the [place] in Last 30 Days - Family History Known Family History: Positive: Cardiac Disease - Social History Occupation: Retired Lives: With Family Alcohol Use: Occasionally Hx Substance Use: No Substance Use Type: Reports: None Hx Tobacco Use: Yes Smoking Status (MU): Former Smoker Review of Systems Positive: Other - Weakness and clamminess Negative: Chest Pain Positive: Abdominal Pain - (since resolved), Vomiting, Diarrhea All Other Systems Reviewed And Are Negative: Yes Physical Exam - Summary Physical Exam Summary: Appearance: Well-appearing, Well-nourished, lying in bed comfortably Skin: Warm, dry, no obvious rash, no jaundice Eyes: sclera anicteric, no conjunctival pallor ENT: mucous membranes moist, pharynx appears normal Neck: Supple, nontender Respiratory: Clear to auscultation, no signs of respiratory distress Cardiovascular: Irregularly irregular pulse. Abdomen: Soft, nontender, normal active bowel sounds present Musculoskeletal: Normal, Strength/ROM Intact Neurological: A&Ox3, awake and alert, mentation is normal, speech is fluent and appropriate Psychiatric: affect is normal, does not appear anxious or depressed Triage Information Reviewed: Yes Vital Signs On Initial Exam: Initial Vitals Temp Pulse Resp BP Pulse Ox 97.6 F 94 15 138/101 99 04/23/18 01:23 04/23/18 01:23 04/23/18 01:23 04/23/18 01:23 04/23/18 01:23 Vital Signs Reviewed: Yes Diagnostics - Vital Signs Vital Signs Temp Pulse Resp BP Pulse Ox 04/23/18 01:23 97.6 F 94 15 138/101 99 - Laboratory Result Diagrams: 04/23/18 01:59 04/23/18 01:59 Lab Statement: Any lab studies that have been ordered have been reviewed, and results considered in the medical decision making process. - CT Chest/Thorax CTA CT Interpretation Completed By: Radiologist - 04/23/2018 on 4:30:48. No pulmonary embolus. Coronary artery calcifications. Ascites. ED Physician has reviewed this imaging report. - EKG No standard instances Cardiac Rate: NL - 87 EKG Rhythm: Atrial Fibrillation EKG Interpretation: Taken 04/23/2018 at 01:50:48 Complex Multi-Symp Course/Dx - Diagnoses Provider Diagnoses: Chest pain, Ascites - Physician Notifications Discussed Care Of Patient With: Bryson Hurd - Hospitalist Time Discussed With Above Provider: 06:06 Instructed by Provider To: Admit As Inpatient - Dr. Hurd will accept the patient. Discharge - Sign-Out/Discharge Documenting (check all that apply): Patient Departure - Discharge Plan Condition: Fair Disposition: ADMITTED TO [facility] - Billing Disposition and Condition Condition: FAIR Disposition: Admitted to [facility]
[2018-04-23 02:12] LABS: Hematocrit 41 % (35-47); Hemoglobin 13.6 g/dl (12.0-16.0); Mean Corpuscular HGB Conc 33 g/dl (31-36); Mean Corpuscular Hemoglobin 28 pg (27-31); Mean Corpuscular Volume 84 fL (80-97); Mean Platelet Volume 8.2 um3 (7.4-10.4); Platelet Count 236 10^3/ul (150-450); Red Blood Count 4.91 10^6/ul (4.00-5.40); Red Cell Distribution Width 27 % (10.5-15); White Blood Count 8.2 10^3/ul (3.5-10.8)
[2018-04-23 02:26] LABS: ABS Basophils 0 10^3/ul (0-0.2); ABS Eosinophils 0.1 10^3/ul (0-0.6); ABS Lymphocytes 0.4 10^3/ul (1.0-4.8); ABS Monocytes 0.4 10^3/ul (0-0.8); ABS Neutrophils 7.2 10^3/ul (1.5-7.7); ABS Nucleated RBC 0 10^3/ul; Eosinophil % 1.3 % (0-6); Lymphocyte % 5.3 % (25-47); Nucleated Red Blood Cells % 0
[2018-04-23 02:29] LABS: EGFR Non-African American 81.4 (>60)
[2018-04-23 03:49] LABS: Urine Appearance Cloudy; Urine Blood 2+ (Negative); Urine Color Yellow; Urine Ketones 1+ (Negative); Urine Protein 1+(30 mg/dL) (Negative); Urine Red Blood Cell 3+(>10/hpf) (Absent); Urine Specific Gravity 1.014 (1.010-1.030); Urine Urobilinogen Negative (Negative); Urine White Blood Cell 2+(11-20/hpf) (Absent)
[2018-04-23] MEDS ORDERED: Iohexol 350* (CONTRAST) 500 ML MDV IV ONE (03:56)
[2018-04-23] MEDS ORDERED: ALPRAZolam TAB* 0.5 MG PO PRN (07:52)
--- NOTE | 2018-04-23 08:05 | RAD ---
INDICATION: Chest pain. Short of breath. Evaluate for pulmonary embolus. COMPARISON: CTA chest July 13, 2012 TECHNIQUE: Axial source images were obtained from the thoracic inlet to the hemidiaphragms following administration of [address] angiographic technique was utilized. Coronal and sagittal reconstructed images were acquired. CHEST FINDINGS: Neck/thyroid: The visualized neck to include the thyroid appear normal. Chest wall: There are no acute abnormalities of the bony thorax or chest wall. There is no supraclavicular, infraclavicular, or axillary lymphadenopathy. Lungs : There are no pulmonary parenchymal masses or infiltrates. There is a tiny pneumatocele in the left lower lobe The pulmonary interstitium appears normal. There are no endobronchial lesions. Cardiomediastinal structures: There is no CT evidence of acute pulmonary embolic disease. The heart is normal in size. There is no pericardial effusion. There is no evidence of aortic aneurysm or dissection. There is no mediastinal or hilar adenopathy. The esophagus appears normal. Pleura : There are no pleural-based masses or effusions. Other: There is ascites. IMPRESSION: NO CT EVIDENCE OF ACUTE PULMONARY EMBOLIC DISEASE. LUNGS CLEAR. ASCITES.
[2018-04-23] MEDS ORDERED: Ciprofloxacin 400MG IVPREMIX(* 400 MG/200 ML BAG IVPB ONE ×2 (08:10→09:00)
[2018-04-23] MEDS ORDERED: metroNIDAZOLE IV 500 MG/100ML* 500 MG/100 ML BAG IVPB ONE ×2 (08:11→09:00)
[2018-04-23] MEDS ORDERED: NS 0.9% 1000 ML* 1,000 ML IV SCH (08:15)
[2018-04-23] MEDS ORDERED: Atenolol TAB* 25 MG PO SCH ×2 (09:00→17:00)
[2018-04-23] MEDS ORDERED: Atorvastatin* 40 MG TAB PO SCH ×2 (09:00→17:00)
--- NOTE | 2018-04-23 09:36 | RAD ---
Indication: Abdominal pain, ascites on CTA of the chest. CT of the abdomen and pelvis was performed without oral or IV contrast administration. There is residual contrast from prior CTA of the chest. Lung bases demonstrated no pleural fluid, nodules or masses. Heart is of normal size without evidence of pericardial effusion. The liver is normal in size. No focal lesions or intrahepatic duct dilatation is noted. The gallbladder demonstrates no calcified gallstones. No pericholecystic fluid or wall thickening is noted. The common duct is not dilated. The pancreas demonstrates no mass or pancreatic duct dilatation. The spleen is normal in size. No adrenal masses are noted. The kidneys demonstrate no hydronephrosis of either kidney. No retroperitoneal lymphadenopathy. No dilated loops of bowel are noted. Myomatous changes of the uterus are noted. No adnexal masses are noted. Minimally distended loops of small bowel are noted. The colon is filled with stool. The appendix is not clearly identified. There is mild thickening of the sigmoid colon. I cannot totally exclude colitis. IMPRESSION: Small amount of ascites. No abnormal masses or fluid collections are noted otherwise. Fibroid uterus.
[2018-04-23] MEDS: Pantoprazole IV* 40 MG IV SCH (10:39)
[2018-04-23] MEDS: Cyanocobalamin TAB* 500 MCG PO SCH (10:43)
[2018-04-23] MEDS: Potassium Chlor TAB* 10 MEQ TAB.ER PO SCH ×2 (10:44→20:32)
[2018-04-23] MEDS: BRIMONIDINE P 0.1% BOTH EYES SCH ×2 (11:31→20:33)
[2018-04-23] MEDS: Heparin VIAL(*) 5000 UNITS/ML VIAL (FIVE THOUSAND) SUBCUT SCH ×2 (14:19→20:35)
[2018-04-23] MEDS ORDERED: fentaNYL* 50 MCG/ML 2 ML VIAL (100 MCG VIAL) ONE (14:49)
[2018-04-23] MEDS ORDERED: Midazolam* 1 MG/ML 10 ML VIAL (10 MG) ONE (14:49)
--- NOTE | 2018-04-23 16:09 | HP ---
CC: Dr. De La Garza HISTORY AND PHYSICAL: DATE OF ADMISSION: 04/23/18 TIME OF EVALUATION: 7:45 a.m. CHIEF COMPLAINT: Abdominal pain. HISTORY OF PRESENT ILLNESS: Ms. Madrigal is a 78-year-old lady with a past medical history of hype rtension, hypothyroidism, glaucoma, Bartholin's gland cancer in 2009, status post hemivulvectomy, stephen moradiation, history of C. diff colitis in 1998, iron-deficiency anemia, migraines, radiation proctit is, aortic stenosis, paroxysmal atrial tachycardia, pancreatitis, gastric ulcer, who presents to the emergency room with complaints of abdominal pain. The patient states she has had feeling her "ulcer is back" for a couple of weeks with early satiety a nd some mild abdominal pain. She states that yesterday, she had a small lunch of pasta with tomato s auce and a brownie for dessert and immediately after, she started to experience epigastric pain, burn ing in nature, rated it 7/10. She states that she continue to feel poorly and she took Tums, pantopr azole, Maalox with minimal relief. She felt profoundly weak, fatigued, had multiple episodes of vomi ting. She states that her symptoms persisted overnight and as the symptoms continued she decided to call 911. She states that before they got to the home, she had 1 episode of diarrhea that she did no t see so she cannot describe. She denies fever, but she did have some chills and sweats. The patient states that she had similar symptoms in 2017, with this persistent epigastric burning emerita n. She was seen at [facility], diagnosed with pancreatitis and admitted for further management. She st ates that her pancreatitis was idiopathic and after discharge she was sent for an upper endoscopy don e in August 2017 that she describes showed a gastric ulcer and she was told it was H. pylori negati ve. She was treated with 6 weeks of pantoprazole and she states that she felt better after that, but recently similar epigastric burning pain had started to happen again. She denies chest pain, shortness of breath, cough, urinary complaints. She states that she did have an episode of left arm and chest pain 2 nights ago that resolved by itse lf. PAST MEDICAL HISTORY: 1. Hypertension. 2. Hypothyroidism. 3. Glaucoma. 4. History of Bartholin's gland cancer in 2009, status post hemivulvectomy, chemotherapy, and radiat ion therapy. 5. Lymphedema. 6. C. diff colitis in 1998. 7. Iron-deficiency anemia. 8. Migraine. 9. Radiation proctitis. 10. Aortic stenosis. 11. Pancreatitis. 12. Gastric ulcer. 13. Urethritis. MEDICATIONS: 1. Alprazolam 0.5 mg p.o. t.i.d. as needed for anxiety. 2. Atenolol 25 mg p.o. daily. 3. Atorvastatin 40 mg p.o. daily. 4. Brimonidine P 0.1% one drop to both eyes b.i.d. 5. Vitamin B12 1000 mcg p.o. daily. 6. Levothyroxine 88 mcg p.o. daily. 7. Fish oil 1000 mg p.o. daily. 8. Potassium chloride 10 mEq p.o. b.i.d. 9. Rizatriptan ODT 10 mg sublingual b.i.d. as needed for migraines. ALLERGIES: NORVASC and NITROGLYCERIN. FAMILY HISTORY: Mother and father had lung cancer. SOCIAL HISTORY: The patient smoked 3 packs a day for 9 years and she quit 45 years ago. She drinks alcohol occasionally. No drug use. 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 REVIEW OF SYSTEMS: A 14-point review of systems was performed and all the pertinent negative and pos itive findings are in the HPI. PHYSICAL EXAMINATION GENERAL: The patient is a pleasant elderly lady sitting up in the ED stretcher, in no acute distress . VITAL SIGNS: Temperature 97.6, heart rate is 100, respiratory rate is 13, oxygen saturation 96% on r oom air, blood pressure 136/87. HEENT: Pupils are equal. Dry mucous membranes. CHEST: Breath sounds present bilaterally with no added sounds. CVS: Normal S1, S2. Regular rate and rhythm. ABDOMEN: Soft with mild left lower quadrant tenderness, but no guarding, no rebound. Bowel sounds a re present. EXTREMITIES: No edema. NEUROLOGIC: She is alert and oriented x3. Able to move all 4 extremities. LABORATORY AND IMAGING DATA: The patient had a CBC that showed a WBC of 8.2, hemoglobin of 13.6, he matocrit of 41, platelets of 236, 87% neutrophils. D-dimer was 634. Chemistry showed a sodium of 140, potassium 4.6, chloride of 106, bicarbonate of 29, BUN of 15, creat inine of 0.7, glucose of 140, lactic acid 1.5, calcium 9.4. Rest is all normal. CRP was less than 1. Troponin 0.01. Lipase was 46. Urinalysis showed 1+ protein, 1+ ketones, 2+ blood, 1+ LE, 2+ WBCs, 3+ RBCs with squamous epithelial cells and amorphous crystals present. CT of the chest showed no CT evidence of acute pulmonary embolic disease. Lungs are clear. Chest as cites. CT of the abdomen and pelvis showed small amount of ascites, slightly increased in the amount when co mpared to previous, calcified uterine fibroids and mild thickening of the wall of the sigmoid colon s uggesting the possibility of colitis. EKG done 04/23/18, at 01:50 a.m. shows possible atrial fibrillation that I actually suspect is likely sinus arrhythmia because there are P waves at 87 beats per minute with no significant ST-T changes a nd no significant change from her prior. ASSESSMENT AND PLAN: Ms. Simón Madrigal is a 78-year-old lady with past medical history of hypertens ion, hypothyroidism, glaucoma, Bartholin's gland cancer, status post surgery, chemoradiation, remote history of C. diff colitis, iron-deficiency anemia, migraine, radiation proctitis, aortic stenosis, g astric ulcer, pancreatitis, who presented to the emergency room with complaints of abdominal pain, na usea and vomiting. 1. Abdominal pain. I suspect the patient may have recurrence of a gastric ulcer. She has had progre ssive symptoms for a couple of weeks and she states that they are very similar to what she experience d last year prior to having her endoscopy. I am going to start her on PPI, we are going to give her clear liquids and I am going to ask GI to se e her in consultation. The patient states that this is also similar to when she had pancreatitis, but her lipase is normal n ow and her CT did not show pancreatic abnormalities. I am going to obtain records from [facility]. I am going to request a GI consultation as the patient may need a repeat endoscopy. 2. Possible colitis. The patient did have an episode of diarrhea. In the CT, there is suggestion o f possible . The patient is afebrile with a normal white cell count. At this point, I am going to start her on Cipro and Flagyl and request Gastroenterology input. This may not be infectious. The patient does have a history of radiation proctitis so this may be re lated to it. 3. Left arm pain. The patient's EKG does not show new ischemic changes. Her first troponin was neg ative and we are going to check 2 more. Her D-dimer was positive, but CT of the chest was negative f or pulmonary embolism. If acute coronary syndrome is ruled out, I believe the patient can have a stress test as outpatient. 4. Hypothyroidism: We will check her TSH and continue Synthroid. 5. Sinus arrhythmia: Although in the ED, there was concern for atrial fibrillation, I believe she jalil luis has sinus arrhythmia at this time with PVCs. The patient states that she was seen by Dr. Abdirahman gallegos and had a Holter and was diagnosed with paroxysmal atrial tachycardia, reason why she is on ateno lol. I am going to continue atenolol, obtain records from [facility], but as I described above, I do no t think this rhythm is atrial fibrillation and on telemetry she clearly shows sinus rhythm. I will m onitor her on telemetry for now. 6. DVT prophylaxis: The patient has a score of 5 on the DVT Prophylaxis Risk Assessment Guide and s he will be started on subcutaneous heparin and SCDs. 7. Code status: Full. TIME SPENT: Approximately 55 minutes was spent with the patient interview, medical records review, p hysical examination to complete this admission and more than half this time was spent [id number] in coordination of care. [id number]/[facility] #: [id number]
[2018-04-23] MEDS: metroNIDAZOLE IV 500 MG/100ML* 500 MG/100 ML BAG IVPB SCH (18:07)
[2018-04-23] MEDS: Ciprofloxacin 400MG IVPREMIX(* 400 MG/200 ML BAG IVPB SCH (20:35)
[2018-04-24] MEDS: metroNIDAZOLE IV 500 MG/100ML* 500 MG/100 ML BAG IVPB SCH ×2 (00:18→09:00)
--- NOTE | 2018-04-24 04:24 | PRO ---
CC: Dr. Chani De La Garza; Dr. Ca Recinos; Dr. Estephania Mosley GASTROENTEROLOGY OPERATIVE REPORT: DATE OF PROCEDURE: 04/23/18 NETWORK SUPPORT SPECIALIST: Estephania Mosley, OPERATIVE PROCEDURE: Esophagogastroduodenoscopy to the second portion of duodenum. ANESTHESIA: 1. Midazolam 4 mg IV. 2. Fentanyl 50 mcg IV. HISTORY OF PRESENT ILLNESS: Paty is a 78-year-old female who presents today with a previous history of peptic ulcer disease last seen on endoscopy in June 2017. She was given pantoprazole 40 mg once daily initially, but over the last few months has been on ranitidine once daily. She presented with episodes of severe epigastric pain with nausea and vomiting. We will proceed forward with an upper endoscopy to rule out peptic ulcer disease given her severe epigastric pain. PREOPERATIVE DIAGNOSES: 1. Epigastric pain. 2. Nausea and vomiting. 3. History of peptic ulcer disease. POSTOPERATIVE DIAGNOSES: 1. Normal-appearing duodenum to the second portion with biopsies. 2. Moderate erosive antral gastritis with LUANNE test to rule out Helicobacter pylori and biopsies from the antrum and body. 3. Regular-appearing Z-line at 35 cm with biopsies. 4. Normal mid and proximal esophagus. RECOMMENDATIONS: 1. We will follow up with biopsy results. 2. Switch ranitidine to pantoprazole 40 mg once daily. 3. May add Carafate 1 g b.i.d., if symptoms do not improve with pantoprazole therapy. 4. Consider right upper quadrant ultrasound to further evaluate for gallbladder disease if the patient's symptoms do not improve with antacid therapy. 5. The patient is currently on Cipro and Flagyl for possible mild sigmoid colitis of the colon seen on CT. 6. The patient should follow up in our office in 2 weeks to discuss biopsy results and determine further plan of care. 7. 7. Results were discussed with Dr. Ca Recinos as well as the patient's . DESCRIPTION OF PROCEDURE: Esophagogastroduodenoscopy was explained in detail to the patient. The risks, benefits, complications, alternatives, and possibilities of missed lesions were explained and understood. Complications included, but were not limited to, reaction to anesthesia, aspiration, increased risk of bleeding, infection and perforation. All questions were answered. The patient demonstrated understanding of the conversation. Informed consent was obtained. Next, the patient was brought to the endoscopy suite, placed in the left lateral recumbent position while blood pressure, cardiac, and oxygen monitors were applied. The patient was found to be a fit candidate for moderate anesthesia. After adequate IV sedation was achieved, a bite-block was placed. Next, a standard adult Olympus endoscope was inserted per os under direct visualization to the first and second portion of the duodenum. These areas were grossly normal appearing. Cold forceps biopsies were obtained to rule out celiac disease. Further withdrawal of the endoscope into the gastric lumen revealed moderate erythema with few small erosions consistent with erosive antral gastritis. On retroflexion, the patient had a normal gastric cardia sling. The rest of the gastric lumen was normal-appearing. Further withdrawal into the distal esophagus revealed a regular-appearing Z-line at 35 cm from the incisors. The rest of the tubular esophagus was normal-appearing. Air was then removed from the patient. Endoscope was removed from the patient. The patient tolerated the procedure well. There were no immediate complications. 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 Thank you, Dr. Recinos, for allowing us to participate in the care of your patient. If you should have any further questions or concerns, please do not hesitate to contact us. [id number]/[facility] #: [id number] NICK
--- NOTE | 2018-04-24 04:33 | CONS ---
CC: Ca Recinos MD; Dr. De La Garza; Dr. Estephania Mosley GASTROENTEROLOGY CONSULTATION NOTE: DATE OF CONSULT: 04/23/18 HOSPITAL PROVIDER: Ca Recinos MD PRIMARY CARE PHYSICIAN: Dr. De La Garza. REASON FOR CONSULT: Epigastric pain. HISTORY OF PRESENT ILLNESS: Ms. Madrigal is a pleasant 78-year-old female with a past medical history of Bartholin's gland cancer in 2009, status post hemivulvectomy with chemoradiation, C. diff colitis, iron-deficiency anemia, radiation proctitis, aortic stenosis, paroxysmal atrial tachycardia, hypertension with the previous history of peptic ulcer diagnosed in June of 2017 and one episode of idiopathic pancreatitis, who presented to the emergency room with complaints of severe epigastric pain. The patient describes this discomfort as a stabbing pain located in the epigastrium that is continuous in nature and worsens with eating food. She describes that this pain is very similar to when she was previously diagnosed with her ulcer and pancreatitis. She was at that time placed on pantoprazole therapy after endoscopy and was feeling very well. After a short course, she was changed to ranitidine therapy and was doing well until a couple weeks ago, her pain began to come back and yesterday. The epigastric pain was severe after eating a small lunch with pasta , tomato sauce and brownie. She admits to nausea and intermittent emesis since then. She denies fevers, but does admit to severe fatigue. She does take Tums and Maalox along with Pepto-Bismol occasionally for this epigastric pain; however, this did not help her yesterday. Thus, she presented to the emergency room for further evaluation. She denies hematemesis, rectal bleeding, melena. She admits to some very occasional naproxen use for aches and pains, but not on a daily basis. She does take a baby aspirin daily. She denies dysphagia and odynophagia as well. She also admits to a history of pancreatitis back in June of 2017 at [facility]. She was told this was idiopathic pancreatitis. From the history that can be gathered from the patient without viewing medical records, it appears that she had an upper endoscopic ultrasound of her pancreas which she was told her pancreas was normal at that time. PAST MEDICAL HISTORY: 1. Hypertension. 2. Hypothyroidism. 3. Glaucoma. 4. Bartholin's gland cancer in 2009, status post hemivulvectomy, chemotherapy, and radiation therapy. 5. Lymphedema. 6. History of C. diff colitis. 7. Iron-deficiency anemia. 8. History of migraine. 9. History of radiation proctitis. 10. Aortic stenosis. 11. History of pancreatitis. 12. History of gastric ulcer. 13. Urethritis. HOME MEDICATIONS: 1. Alprazolam. 2. Atenolol. 3. Atorvastatin. 4. Brimonidine. 5. Vitamin B12. 6. Levothyroxine. 7. Fish oil. 8. Potassium chloride. 9. Rizatriptan. 10. Ranitidine daily. ALLERGIES: NORVASC and NITROGLYCERIN. FAMILY HISTORY: Mother and father had lung cancer. Denies family history of gastrointestinal malignancies. SOCIAL HISTORY: She quit 45 years ago smoking. She admits to very occasional alcohol use. Denies illicit drug use. REVIEW OF SYSTEMS: All pertinent positives and negatives had been noted above, rest of review of systems on a 14-point scale had been negative. PHYSICAL EXAM: Vital Signs: Temperature 97.6, pulse 62, respirations 16, oxygenation 98% on room air, blood pressure 103/48. Generally, the patient is alert and oriented x3, in no acute distress, well-nourished. HEENT: Normocephalic, atraumatic. Extraocular muscles are intact. Anicteric sclerae bilaterally. Cardiovascular Exam: Regular rate and rhythm. Pulmonary: Clear to auscultation bilaterally. Abdominal Exam: Soft, mild tenderness to palpation in the epigastric area, nondistended. Positive bowel sounds present. No hepatosplenomegaly. No rebound, guarding, or rigidity. Extremities: No clubbing, cyanosis, or edema. Neurological: No gross focal deficits are appreciated. DIAGNOSTIC STUDIES/LAB DATA: WBC is 8.2, hemoglobin 13.6, hematocrit 41, platelets 236. Sodium 140, potassium 4.6, chloride 106, CO2 29, anion gap 5, BUN 15, creatinine 0.7. Lactic acid 1.5, calcium 9.4. Total bilirubin 0.6, AST 12, ALT 14, alkaline phosphatase 51. Troponin x2 were negative at 0.01, CRP less than 1.00. Total protein 6.3, albumin 3.6, lipase 46, TSH 2.03. ASSESSMENT AND PLAN: Ms. Simón Madrigal is a pleasant 78-year-old female with a previous history of peptic ulcer disease, pancreatitis, C. diff colitis, radiation proctitis, iron deficiency anemia, aortic stenosis, hypertension, and anxiety, who presented with complaints of acute on chronic epigastric pain. She was diagnosed with the peptic ulcer back in June of 2017 and was doing well on pantoprazole therapy. She was subsequently switched to ranitidine therapy for decreasing potential future side effects; however, since initiating therapy, she has been experiencing increased upper abdominal complaints including epigastric pain with intermittent nausea, and vomiting. She denies weight changes. She does admit to occasional use of naproxen. She is noncompliant with anti-reflux lifestyle modifications. On admission to the emergency room, she had a normal lipase level. She was told previously back in June that she had an episode of pancreatitis and she did have an endoscopic ultrasound for further evaluation that was negative and revealed a normal appearing pancreas at that time per patient's recollection. She was at that time told that she had idiopathic pancreatitis. CT of the abdomen on this admission did not reveal any acute abnormalities in her pancreas and gallbladder beside some mild colitis seen in the sigmoid colon. At this time, I would consider possible reoccurrence of peptic ulcer disease. The patient's findings of colitis are very nonspecific. She denies any fevers, chills, change in bowel habits. She was started on antibiotics including Cipro and Flagyl for further treatment just in case there is an infectious cause for her symptoms. The patient is in agreement with pursuing repeat upper endoscopy to evaluate for possible reoccurrence of peptic ulcer disease. Patient should be started on pantoprazole therapy 40 mg once daily for now. She is to remain n.p.o. Further recommendations will be provided as the patient's clinical course progresses. Thank you, Dr. Ca Recinos, for allowing us to participate in the care of your patient. If you should have any further questions or concerns, please do not hesitate to contact us. [id number]/[facility] #: [id number] [facility]PITALJesus
[2018-04-24] MEDS: Heparin VIAL(*) 5000 UNITS/ML VIAL (FIVE THOUSAND) SUBCUT SCH (05:27)
[2018-04-24] MEDS ORDERED: Levothyroxine TAB* 88 MCG TAB PO SCH (06:00)
[2018-04-24] MEDS: Sucralfate TAB* 1 GM PO SCH ×2 (08:57→11:31)
[2018-04-24] MEDS: Ciprofloxacin 400MG IVPREMIX(* 400 MG/200 ML BAG IVPB SCH (08:58)
[2018-04-24] MEDS: BRIMONIDINE P 0.1% BOTH EYES SCH (08:58)
[2018-04-24] MEDS: Pantoprazole IV* 40 MG IV SCH (08:58)
[2018-04-24] MEDS: Potassium Chlor TAB* 10 MEQ TAB.ER PO SCH (10:00)
[2018-04-24] MEDS: Cyanocobalamin TAB* 500 MCG PO SCH (10:00)
[2018-04-24 11:17] VITALS: BP 155/63
[2018-04-24] MEDS ORDERED: metroNIDAZOLE TAB* 250 MG PO ONE (11:36)
[2018-04-24] MEDS ORDERED: Ciprofloxacin TAB* 500 MG PO ONE (11:36)
--- NOTE | 2018-04-25 20:52 | DS ---
CC: Dr. De La Garza; Estephania Mosley DO* DISCHARGE SUMMARY: DATE OF ADMISSION: 04/23/18 DATE OF DISCHARGE: 04/24/18 PRIMARY CARE PROVIDER: Dr. De La Garza. MOTOR BOSS: Estephania Mosley DO DISCHARGE DIAGNOSES: 1. Moderate erosive antral gastritis. 2. Mild colitis (infection versus radiation). SECONDARY DIAGNOSES: 1. Hypertension. 2. Hypothyroidism. 3. Glaucoma. 4. History of Bartholin gland cancer in 2009 status post hemivulvectomy, chemotherapy and radiation therapy. 5. Lymphedema. 6. C. diff colitis in 1988. 7. Iron-deficiency anemia. 8. Migraine. 9. Radiation proctitis. 10. Aortic stenosis. 11. Pancreatitis. 12. Gastric ulcer. 13. Urethritis. MEDICATIONS: 1. Rizatriptan 10 mg p.o. b.i.d. as needed for migraines. 2. Potassium chloride 10 mEq p.o. b.i.d. 3. Fish oil 1000 mg p.o. daily. 4. Levothyroxine 88 mcg p.o. daily. 5. Cyanocobalamin 1000 mcg p.o. daily. 6. Brimonidine P 0.1% 1 drop to both eyes b.i.d. 7. Atorvastatin 40 mg p.o. daily. 8. Atenolol 25 mg p.o. daily. 9. Alprazolam 0.5 mg p.o. t.i.d. as needed for anxiety. New medications: 1. Pantoprazole 40 mg p.o. daily. 2. Sucralfate 1 g p.o. before meals. 3. Ciprofloxacin 500 mg p.o. b.i.d. for 6 days. 4. Metronidazole 500 mg p.o. q.8 hours for 6 days. HOSPITAL COURSE: Mrs. Simón Madrigal is a 78-year-old lady with past medical history as stated above that presented to the emergency room with complaints of abdominal pain as described in the HPI. The patient's symptoms felt like ( gastric ulcer was back). The patient was admitted for further evaluation and management. She was seen in consultation by GI (Dr. Mosley) and the patient underwent an endoscopy that showed a normal appearing duodenum to the second portion with biopsies, moderate erosive antral gastritis with CLOtest to rule out H. pylori and biopsies from the antrum and body, regular appearing Z-line at 35 cm with biopsies, normal mid and proximal esophagus. Her recommendation was just switch the patient from ranitidine to pantoprazole 40 mg once a day. She will add Carafate and she will consider right upper quadrant ultrasound as outpatient to further evaluate her gallbladder disease if the patient's symptoms do not improve with antacid therapy. She recommended followup in their office in 2 weeks to discuss biopsy results and determine further plan of care. She was in agreement with Harley and Saritha for a possible mild sigmoid colitis seen on CT that could be infectious or related to the radiation therapy the patient had in the past. Dr. Mosley did not feel a colonoscopy was indicated at this time, but the patient will be followed as outpatient. The patient had significant symptomatic improvement after receiving pantoprazole , was able to tolerate a diet and was anxious for discharge. She is medically stable to be discharged to home today, to follow up with Dr. De La Garza and Dr. Mosley as outpatient. PHYSICAL EXAMINATION: Vital Signs: Temperature 98.4, heart rate is 58, respiratory rate 12, oxygen saturation 100% on room air, blood pressure is 155/ 63. General: The patient is a pleasant lady sitting up in bed, in no acute distress. CVS: Normal S1 and S2. Regular rate and rhythm. Chest: Breath sounds present bilaterally with no added sounds. Abdomen: Soft. Bowel sounds are present. Neuro: She is alert, awake, and oriented x3. Able to move all 4 extremities. DIET: Regular diet. ACTIVITY: As tolerated. DISPOSITION: To home. STATUS WHILE IN THE HOSPITAL: Observation. Please keep in mind that this is a summarized version of this patient's hospital stay. If you need more information, please feel free to call me at or please obtain the full medical records. TIME SPENT: Approximately 45 minutes were spent to complete this discharge. [id number]/[facility] #: [id number] [facility]Jesus
== END 2018-04-24 11:50 | disposition home or self-care (01) ==
LOC: ED 01:18 → MEDTELE 08:14
PROVIDERS: ADMIT Internal Medicine; ATTEND Internal Medicine
DX: K29.60 Other gastritis without bleeding (principal); R07.9 Chest pain, unspecified; K52.9 Noninfective gastroenteritis and colitis, unspecified; I10 Essential (primary) hypertension; E03.9 Hypothyroidism, unspecified; H40.9 Unspecified glaucoma; Z85.858 Personal history of malignant neoplasm of other endocrine glands; Z92.21 Personal history of antineoplastic chemotherapy; I89.0 Lymphedema, not elsewhere classified; Z86.19 Personal history of other infectious and parasitic diseases; D50.9 Iron deficiency anemia, unspecified; G43.909 Migraine, unspecified, not intractable, without status migrainosus; K62.7 Radiation proctitis; I35.0 Nonrheumatic aortic (valve) stenosis; K85.90 Acute pancreatitis without necrosis or infection, unspecified; K25.9 Gastric ulcer, unspecified as acute or chronic, without hemorrhage or perforation; N34.2 Other urethritis
CPT/HCPCS: 36415; 71275; 74176; 80053; 81003; 81015; 83605; 83690; 84443; 84484; 85025; 85060; 85379; 86140; 87077; 87086; 88305; 88342; 93005; 99156; 99157; 99284; A9270-GY; G0378; J0744; J1644; J2250; J3010; J3490; Q9967

== ENCOUNTER → 2018-10-01 12:23 | Emergency (ER) | payer MEDICARE, OTHER ==
[~2018-10-01 12:23] MED LIST: Albuterol/Ipratropium NEB.SOL* Albuterol 2.5 MG/Ipratropium 0.5 MG 3 ML INH ONE
--- NOTE | 2018-10-01 13:00 | ED ---
HPI Chest Pain - HPI Summary HPI Summary: A 78 y/o female accompanied by her presents to the ED c/o intermittent chest pain and SOB. As per triage, "last night began with SOB, heart burn symptoms, light headed. when she woke still feeling heart burn, left sided chest pain radiating into left armpit and down arm. has taken prilosec and succrafate during night, then 162mg aspsirin this AM. history of stomach ulcer. history of PAT (tachycardia), aortic stenosis". According to the patient, on Thursday or Thursday she woke up in the middle of the night and went to the bathroom. She stated that she she got back to bed she was really SOB for a long time, but then it subsided. She stated that she had the same time last night except she "also had what felt like heart burn" with mild lightheadedness. She denies any heart surgeries, stents, or SD, but does have a aortic stenosis. She denies any nausea vomiting, back pain, diaphoresis, abdominal pain, headache, edema, anxiety or depression. Patient stated that she did have a stress test done due to aortic stenosis. Patient just had a sonogram of her heart in July with her director of special services, Dr. Brown at [facility]. PMHx of stomach ulcer and erosion. Patient is not a smoker or does not drink ETOH. - History of Current Complaint Chief Complaint: EDChestPainROMI Hx Obtained From: Patient Onset/Duration: Started Days Ago Timing: Intermittent Current Severity: None Pain Intensity: 0 Pain Scale Used: 0-10 Numeric Chest Pain Location: Diffuse Chest Pain Radiates To:: Arm - LEFT Character: Other: - HEART BURN Aggravating Factor(s): Nothing Alleviating Factor(s): Nothing Associated Signs and Symptoms: Positive: Chest Pain, Shortness of Breath, Lightheadedness - Additional Pertinent History Primary Care Physician: [id number] - Allergy/Home Medications Allergies/Adverse Reactions: Allergies Allergy/AdvReac Type Severity Reaction Status Date / Time clindamycin Allergy Severe See Comment Verified 10/01/18 12:36 amlodipine [From Norvas] Allergy Swelling Verified 10/01/18 12:36 nitroglycerin Allergy Fatigue Verified 10/01/18 12:36 Home Medications: Home Medications ALPRAZolam TAB* [Xanax TAB*] 0.25 mg PO DAILY PRN MDD 0.25 mg 10/01/18 [History Confirmed 10/01/18] Aspirin EC TAB* [Ecotrin EC Low Dose 81 MG*] 81 mg PO DAILY 10/01/18 [History Confirmed 10/01/18] Diltiazem CD CAP* [Cardizem CD CAP*] 120 mg PO DAILY PRN 10/01/18 [History Confirmed 10/01/18] Estradiol VAG CM (NF) [Estrace VAG CM (NF)] 1 applic VAGINAL WEEKLY 10/01/18 [ History Confirmed 10/01/18] Levothyroxine TAB* [Synthroid TAB*] 75 mcg PO DAILY 10/01/18 [History Confirmed 10/01/18] LoraTADine TAB(NF) [Claritin 10 MG TAB(NF)] 10 mg PO DAILY 10/01/18 [History Confirmed 10/01/18] Travoprost Z 0.004% OPHTH (NF) [Travatan Z 0.004% OPTH (NF)] 1 drop BOTH EYES DAILY 10/01/18 [History Confirmed 10/01/18] Zolpidem TAB* [Ambien TAB*] 10 mg PO BEDTIME PRN 10/01/18 [History Confirmed ] guaiFENesin/CODIEN 100MG-10MG* [Robitussin AC 100Mg-10Mg*] 10 ml PO Q8HR PRN MDD 30 ml 10/01/18 [History Confirmed 10/01/18] PMH/Surg Hx/FS Hx/Imm Hx Endocrine/Hematology History: Reports: Hx Thyroid Disease, Hx Anemia - iron defficiancy s/p chemo and radiation Denies: Hx Anticoagulant Therapy, Hx Blood Disorders, Hx Blood Transfusions, Hx Bone Marrow Disease, Hx Diabetes, Hx Systemic Lupus Erythematosus, Hx Sickle Cell Disease, Hx Unexplained Bleeding, Other Endocrine/Hematological Disorders Cardiovascular History: Reports: Hx Hypercholesterolemia, Hx Hypotension - adverse effect of nitro, Hx Hypertension, Hx Syncope Denies: Hx Aneurysm, Hx Angina, Hx Angioplasty, Hx Auto Implanted Cardiovert Defib, Hx Cardiac Arrest, Hx Cardiomegaly, Hx Congenital Heart Disease, Hx Congestive Heart Failure, Hx Coronary Artery Disease, Hx Deep Vein Thrombosis, Hx Embolism, Hx Myocardial Infarction, Hx Pacemaker/ICD, Hx Peripheral Vascular Disease, Hx Rheumatic Fever, Hx Valvular Heart Disease, Other Cardiovascular Problems/Disorders Respiratory History: Reports: Hx Seasonal Allergies - mold Denies: Hx Asthma, Hx Chronic Bronchitis, Hx Chronic Obstructive Pulmonary Disease (COPD), Hx Cystic Fibrosis, Hx Lung Cancer, Hx Pleural Effusion, Hx Pneumonia, Hx Pulmonary Edema, Hx Pulmonary Embolism, Hx Sleep Apnea GI History: Reports: Hx Diverticulosis Denies: Hx Cirrhosis, Hx Crohn's Disease, Hx Gall Bladder Disease, Hx Gastroesophageal Reflux Disease, Hx Gastrointestinal Bleed, Hx Hiatal Hernia, Hx Irritable Bowel, Hx Jaundice, Hx Obstructive Bowel, Hx Ileostomy, Hx Pyloric Stenosis, Hx Ulcer, Other GI Disorders History: Denies: Hx Acute Renal Failure, Hx Benign Prostatic Hyperplasia, Hx Chronic Renal Failure, Hx Dialysis, Hx Kidney Infection, Hx Kidney Stones, Hx Renal Disease Comment Only: Other Problems/Disorders - Hx UTI Musculoskeletal History: Reports: Hx Arthritis - osteo arthritis, Hx Back Problems - low back, Hx Orthopedic Injury - pelvis dislocation from previous fall, Hx Osteoporosis - osteopenia Denies: Hx Bursitis, Hx Congenital Bone Abnormalities, Hx Fibromyalgia, Hx Gout, Hx Scoliosis, Hx Tendonitis Sensory History: Reports: Hx Contacts or Glasses, Hx Glaucoma, Hx Vision Problem Denies: Hx Cataracts, Hx Eye Injury, Hx Eye Prosthesis, Hx Macular Degeneration, Hx Deafness, Hx Hearing Aid, Hx Hearing Problem, Other Sensory Impairments Opthamlomology History: Reports: Hx Contacts or Glasses, Hx Glaucoma, Hx Vision Problem Denies: Hx Cataracts, Hx Eye Injury, Hx Eye Prosthesis, Hx Macular Degeneration, Other Sensory Impairments Neurological History: Reports: Hx Migraine - Aura migraine Denies: Hx Dementia, Hx Developmental Delay, Hx Headaches, Hx Seizures, Hx Spinal Cord Injury, Hx Transient Ischemic Attacks (TIA), Other Neuro Impairments /Disorders Psychiatric History: Reports: Hx Anxiety Denies: Hx Attention Deficit Hyperactivity Disorder, Hx Eating Disorder, Hx Depression, Hx Panic Disorder, Hx Post Traumatic Stress Disorder, Hx Inpatient Treatment, Hx Community Mental Health Tx, Hx Schizophrenia, Hx Bipolar Disorder , Hx Suicide Attempt, Hx of Violent Episodes Against Others, Hx Substance Abuse , Other Psychiatric Issues/Disorders - Cancer History Cancer Type, 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 Hx Chemotherapy: Yes - 2009 Hx Radiation Therapy: Yes - Surgical History Surgery Procedure, Year, and Place: jose-vulvectomy 2009, tonsillectomy, appendectomy Hx Anesthesia Reactions: No Infectious Disease History: No Infectious Disease History: Denies: Hx Clostridium Difficile, Hx Hepatitis, Hx Human Immunodeficiency Virus (HIV), Hx Shingles, Hx Tuberculosis, Hx Known/Suspected VRE, Hx Known/ Suspected VRSA, History Other Infectious Disease, Traveled Outside the [place] in Last 30 Days - Family History Known Family History: Positive: Cardiac Disease - Social History Alcohol Use: Occasionally Hx Substance Use: No Substance Use Type: Reports: None Hx Tobacco Use: Yes Smoking Status (MU): Former Smoker Review of Systems Negative: Fever, Chills, Skin Diaphoresis Positive: Other - NEGATIVE: DOUBLE VISION. Negative: Blurred Vision Negative: Sore Throat, Ear Ache Positive: Chest Pain Positive: Shortness Of Breath Positive: Other - NEGATIVE: BLOOD IN STOOL, CONSTIPATION. Negative: Abdominal Pain, Vomiting, Nausea Negative: dysuria, hematuria Positive: Other - NEGATIVE: BACK PAIN, NECK PAIN. Negative: Edema Negative: Rash, Bruising Neurological: Other - POSITIVE: LIGHTHEADEDNESS Negative: Headache Negative: Anxious, Depressed All Other Systems Reviewed And Are Negative: No Physical Exam - Summary Physical Exam Summary: Appearance: Alert, conversive, nontoxic appearing Skin: Warm, dry, no mottling, no rashes, no contusions HEENT: EOMI, PERRL, moist mucous membranes Neck: No masses on the neck, supple Respiratory: Clear to auscultation, breath sounds present, no rales, no rhonchi , no wheezes Cardiovascular: RRR, pulses are symmetrical in both lower and upper extremities , systolic ejection murmur 3/6 Abdomen: Soft, non-tender Bowel Sounds: Present Musculoskeletal: No CVA tenderness, no obvious deformity, moving all extremities in a grossly normal manner Neurological: A&Ox3, CN II-XII Intact, moving all extremities symmetrically Psychiatric: Normal affect and mood Triage Information Reviewed: Yes Vital Signs On Initial Exam: Initial Vitals Temp Pulse Resp BP Pulse Ox 98.3 F 67 16 158/81 100 10/01/18 12:30 10/01/18 12:30 10/01/18 12:30 10/01/18 12:30 10/01/18 12:30 Vital Signs Reviewed: Yes Diagnostics - Vital Signs Vital Signs Temp Pulse Resp BP Pulse Ox 10/01/18 12:30 98.3 F 67 16 158/81 100 - Laboratory Result Diagrams: 10/01/18 13:43 10/01/18 13:43 Lab Statement: Any lab studies that have been ordered have been reviewed, and results considered in the medical decision making process. - Radiology CXR Radiology Interpretation Completed By: Radiologist Summary of Radiographic Findings: FINDINGS SUGGESTIVE OF COPD, NO EVIDENCE FOR ACUTE FINDING. ED PHYSICIAN REVIEWED THIS RADIOLOGY REPORT. - EKG 1238 Cardiac Rate: NL - 62 BPM EKG Rhythm: Sinus Rhythm - [address] Segment: Normal Summary of EKG Findings: normal QRS, normal QTc, normal axis, normal ST/T wave Re-Evaluation - Re-Evaluation First Eval Re-Evaluation Time: 15:21 Change: Unchanged Comment: DISCUSSED RESULTS AND PLAN WITH PATIENT. DISCUSSED ADMISSION WITH PATIENT. IN THE ED ROOM, THE PATIENT HAS A PULSE OF 81 BPM, O2 SATURATION OF 100 %, AND RESPIRATORY RATE OF 25. PATIENT NOTED THAT LAYING DOWN MADE THE CHEST PAIN WORSE, BUT STANDING UP ALLEVIATED THE PAIN. Second Eval Re-Evaluation Time: 17:02 Change: Unchanged Comment: SPOKE TO PRIMARY CARE PROVIDER, DR. KADEEM DE LA GARZA. PATIENT DOES NOT NEED STRESS TEST. MD ASKED THE PCP TO FOLLOW UP EARLY NEXT WEEK, HOWEVER, THE PCP SAID THEY WOULD DO THEIR BEST. Chest Pain Course/Dx - Course Course Of Treatment: A 78 y/o female accompanied by her presents to the ED c/o intermittent chest pain and SOB. Physical examination findings significant for systolic ejection murmur of 3/6. A CXR revealed findings suggestive of COPD, no evidence for acute finding. An EKG revealed NSR of 62 BPM , normal QRS, normal QTc, normal axis, normal ST/T wave. Hematology and Chemistry screens were done. No significant laboratory abnormalities were found. Troponin I and I were 0.00. In the ED course, the patient received Duoneb. Patient care was discussed with primary care provider, Dr. Kadeem De La Garza, who recommended the patient does not need a stress test. ER MD asked PCP to follow up with patient early next week, however, PCP stated that they would do their best to see the patient. Patient will be discharged with a diagnosis of chest pain. Patient is to follow up with primary care provider in 2-3 days. Patient is to return to ED for any new or worsening symptoms. Patient is agreeable with this plan. - Diagnoses Provider Diagnoses: Chest pain Discharge - Sign-Out/Discharge Documenting (check all that apply): Patient Departure - DISCHARGE - Discharge Plan Condition: Stable Disposition: HOME Patient Education Materials: Chest Pain (ED), Chest Pain (DC) Referrals: Kadeem De La Garza MD [Primary Care Provider] - 3 Days Additional Instructions: Please follow up with your primary care physician and your director of special services. return if worse or any new symptoms. Take all medications as previously instructed. take 81mg of aspirin daily for good heart health. RETURN TO ED FOR ANY NEW OR WORSENING SYMPTOMS. - Attestation Statements Document Initiated by Scribe: Yes Documenting Scribe: Jose Rivera Provider For Whom Hollis is Documenting (Include Credential): Magdalena Carlos MD Scribe Attestation: Jose Jimenez, scribed for Magdalena Carlos MD on 10/01/18 at [id number]. Status of Scribe Document: Ready
[2018-10-01 13:54] LABS: Hematocrit 29 % (35-47); Hemoglobin 9.1 g/dl (12.0-16.0); Mean Corpuscular HGB Conc 31 g/dl (31-36); Mean Corpuscular Hemoglobin 23 pg (27-31); Mean Corpuscular Volume 72 fL (80-97); Mean Platelet Volume 8.2 fL (7.4-10.4); Platelet Count 215 10^3/ul (150-450); Red Blood Count 4.02 10^6/ul (4.00-5.40); Red Cell Distribution Width 19 % (10.5-15); White Blood Count 4.3 10^3/ul (3.5-10.8)
[2018-10-01 14:08] LABS: Albumin 3.5 g/dL (3.2-5.2); Albumin/Globulin Ratio 1.5 (1-3); Calcium 8.6 mg/dL (8.6-10.3); EGFR Non-African American 84.1 (>60); Globulin 2.4 g/dL (2-4); Magnesium 1.9 mg/dL (1.9-2.7); Potassium 3.7 mmol/L (3.5-5.0); Total Bilirubin 0.3 mg/dL (0.2-1.0); Total Protein 5.9 g/dL (6.4-8.9)
[2018-10-01 14:21] LABS: ABS Basophils 0 10^3/ul (0-0.2); ABS Eosinophils 0.3 10^3/ul (0-0.6); ABS Lymphocytes 0.7 10^3/ul (1.0-4.8); ABS Monocytes 0.4 10^3/ul (0-0.8); ABS Neutrophils 2.9 10^3/ul (1.5-7.7); ABS Nucleated RBC 0 10^3/ul; Eosinophil % 7.2 %; Lymphocyte % 15.4 %; Nucleated Red Blood Cells % 0
[2018-10-01 14:36] LABS: TSH (Thyroid Stimulating Horm) 2.46 mcIU/mL (0.34-5.60)
[2018-10-01 18:16] VITALS: BP 150/90
== END | disposition home or self-care (01) ==
LOC: ED 12:23
DX: R07.9 Chest pain, unspecified (principal); R06.02 Shortness of breath; R42 Dizziness and giddiness; Z87.11 Personal history of peptic ulcer disease; Z85.44 Personal history of malignant neoplasm of other female genital organs; Z87.891 Personal history of nicotine dependence
CPT/HCPCS: 36415; 71045; 80053; 83735; 83880; 84443; 84484; 85025; 93005; 99283; A9270-GY

== ENCOUNTER 2024-04-21 17:07 | Inpatient (IN) ==
[2024-04-21 17:36] LABS: ABS Eosinophils 0.1 10^3/uL (0.0-0.5); ABS Lymphocytes 0.4 10^3/uL (1.0-4.8); ABS Monocytes 0.8 10^3/uL (0.0-0.9); ABS Neutrophils 3.8 10^3/uL (1.5-7.6); Eosinophil % 1.3 %; Hematocrit 41.7 % (35-45); Hemoglobin 13.9 g/dL (11.5-14.3); Lymphocyte % 7.6 %; Mean Corpuscular Hemoglobin 28.8 pg (27-33); Mean Corpuscular Hgb Conc 33.4 g/dL (31-36); Mean Corpuscular Volume 86.2 fL (80-97); Mean Platelet Volume 8.4 fL (7.5-11.2); Platelet Count 199 10^3/uL (150-450); Red Blood Count 4.83 10^6/uL (3.63-4.92); White Blood Count 5.1 10^3/uL (3.8-11.8)
[2024-04-21 17:46] LABS: INR 1.17 (0.83-1.13)
[2024-04-21 17:56] LABS: Albumin 3.8 g/dL (3.2-5.2); Albumin/Globulin Ratio 1.4 (1-3); Calcium 8.8 mg/dL (8.6-10.3); Creatinine, Serum 0.67 mg/dL (0.51-0.95); Globulin 2.7 g/dL (2-4); Total Bilirubin 0.7 mg/dL (0.2-1.0); Total Protein 6.5 g/dL (6.4-8.9); eGFR CKD-EPI 87.2 (>60)
[2024-04-21 19:04] LABS: High Sensitivity Troponin 1 Hr 6 pg/mL (<15)
[2024-04-21] MEDS: Ondansetron 4 mg VIAL 2 MG/ML 2 ml VIAL IV ONE (19:27)
[2024-04-21] MEDS: Metoprolol Tartrate 5 mg VIAL 5 ml VIAL (1 mg/ml) IV ONE (19:27)
[2024-04-21] MEDS: Iohexol 350 (CONTRAST) 500 ML MDV IV ONE (21:27)
[2024-04-21 23:25] LABS: Magnesium 1.8 mg/dL (1.9-2.7)
[2024-04-21] MEDS: Magnesium Sulfate IV 1GM/100ML 1 GM/100 ML BAG IV ONE (23:56)
[2024-04-22] MEDS ORDERED: Albuterol HFA INHALER 8 gm MDI INH PRN (02:26)
[2024-04-22 07:05] LABS: Calcium 7.9 mg/dL (8.6-10.3); Creatinine, Serum 0.6 mg/dL (0.51-0.95); Potassium 3.8 mmol/L (3.5-5.0); eGFR CKD-EPI 89.6 (>60)
[2024-04-22] MEDS: Potassium Chlor 10 meq TAB PO SCH (07:42)
[2024-04-22 07:45] LABS: ABS Lymphocytes 0.4 10^3/uL (1.0-4.8); ABS Monocytes 0.9 10^3/uL (0.0-0.9); ABS Neutrophils 1.6 10^3/uL (1.5-7.6); Eosinophil % 1.4 %; Hematocrit 36.4 % (35-45); Lymphocyte % 14.3 %; Mean Corpuscular Hemoglobin 28.1 pg (27-33); Mean Corpuscular Hgb Conc 32.9 g/dL (31-36); Mean Corpuscular Volume 85.4 fL (80-97); Mean Platelet Volume 8.2 fL (7.5-11.2); Nucleated Red Blood Cells % 0.2 %/100WBC (0.0-0.8); Platelet Count 161 10^3/uL (150-450); Red Blood Count 4.26 10^6/uL (3.63-4.92); Red Cell Distribution Width 22.9 % (12-17)
[2024-04-22] MEDS: Cholecalciferol (VIT D3) 1,000 unit TAB PO SCH (07:46)
[2024-04-22] MEDS: Potassium Chlor 20 meq TAB.ER PO ONE ×2 (07:47→21:32)
[2024-04-22 07:55] LABS: Magnesium 2.2 mg/dL (1.9-2.7)
[2024-04-22 11:24] LABS: Erythrocyte Sed Rate 11 mm/Hr (0-29)
[2024-04-22] MEDS: Digoxin IV 0.5 MG/2 ML AMP (0.25 MG/ML) IV SLOW PU ONE (13:37)
[2024-04-22] MEDS: Sulfur Hexaflouride MICROSPHR 25 MG VIAL IV ONE (14:53)
[2024-04-22] MEDS: Furosemide 40 mg/4 ml IV VIAL IV ONE (14:57)
[2024-04-22] MEDS: Latanoprost 0.005% 2.5 ml BTL BOTH EYES SCH (21:32)
[2024-04-23 06:45] LABS: Hematocrit 38.9 % (35-45); Mean Corpuscular Hemoglobin 28.3 pg (27-33); Mean Corpuscular Hgb Conc 33.3 g/dL (31-36); Mean Platelet Volume 8.1 fL (7.5-11.2); Platelet Count 180 10^3/uL (150-450); Red Blood Count 4.58 10^6/uL (3.63-4.92); Red Cell Distribution Width 22.6 % (12-17); White Blood Count 3.6 10^3/uL (3.8-11.8)
[2024-04-23 07:29] LABS: Creatinine, Serum 0.63 mg/dL (0.51-0.95); Potassium 3.9 mmol/L (3.5-5.0); eGFR CKD-EPI 88.5 (>60)
[2024-04-23 11:35] LABS: Digoxin 0.8 ng/ml (0.8-2.0)
[2024-04-23] MEDS ORDERED: Potassium Chlor 20 meq TAB.ER PO ONE (15:31)
[2024-04-23] MEDS ORDERED: Magnesium Hydroxide LIQ 30 ML UDC PO PRN (15:35)
[2024-04-23] MEDS: Potassium Chlor 20 meq TAB.ER PO ONE (17:27)
[2024-04-23] MEDS: Polyethylene Glycol 3350 17 GM PACKET PO PRN (17:42)
[2024-04-23] MEDS: Ondansetron 4 mg VIAL 2 MG/ML 2 ml VIAL IV ONE (22:10)
[2024-04-24 06:21] LABS: Hematocrit 38.3 % (35-45); Hemoglobin 12.7 g/dL (11.5-14.3); Mean Corpuscular Hemoglobin 28.4 pg (27-33); Mean Corpuscular Hgb Conc 33.1 g/dL (31-36); Mean Corpuscular Volume 85.9 fL (80-97); Platelet Count 176 10^3/uL (150-450); Red Blood Count 4.46 10^6/uL (3.63-4.92); Red Cell Distribution Width 22.9 % (12-17); White Blood Count 3.6 10^3/uL (3.8-11.8)
[2024-04-24 06:56] LABS: ABS Lymphocytes 0.7 10^3/uL (1.0-4.8); ABS Monocytes 0.9 10^3/uL (0.0-0.9); ABS Neutrophils 1.9 10^3/uL (1.5-7.6); Eosinophil % 1.2 %; Lymphocyte % 19.6 %; Nucleated Red Blood Cells % 0.1 %/100WBC (0.0-0.8)
[2024-04-24 08:35] LABS: Calcium 8.1 mg/dL (8.6-10.3); Creatinine, Serum 0.64 mg/dL (0.51-0.95); eGFR CKD-EPI 88.2 (>60)
[2024-04-24 15:46] VITALS: BP 147/86
== END 2024-04-24 16:40 | disposition home or self-care (01) | DRG 308 ==
LOC: EDHOLD 17:07 → ED 17:07 → SUATTDRO 04-22 01:20 → MEDTELE 04-22 11:59
PROVIDERS: ADMIT Internal Medicine; ATTEND Family Medicine